=== PATIENT | female | born 1950 | race Caucasian/White ===

== ENCOUNTER 2018-03-11 13:17 | Outpatient (CLI) | payer MEDICARE, BC ==
[~2018-03-11] VITALS: Ht 157.6 cm; Wt 83.3 kg
[~2018-03-11 13:17] MED LIST: OMEPRAZOLE40 MG PO; ZOLOFT 50MG50 MG PO
[2018-03-11] MEDS ORDERED: TOPROL XL 25MG25 MG PO (14:15)
[2018-03-11] MEDS ORDERED: MEVACOR 20M20 MG/TAB PO (14:16)
[2018-03-11] MEDS ORDERED: VITAMIN D31000 I1 PO (14:17)
[2018-03-11 14:36] VITALS: BP 132/71; PULSE 67; TEMP 98.4
[2018-03-11] MEDS ORDERED: CEPHALEXIN500 M1 PO (16:32)
[2018-03-11 17:20] VITALS: BP 138/73; PULSE 62; TEMP 98.4
--- NOTE | 2018-03-11 17:30 | NUR ---
Discharge instructions given. Transferred to private car by bobo
== END 2018-03-11 17:30 | disposition home or self-care (01) ==
LOC: COL.CAR 13:17
DX: I48.0 Paroxysmal atrial fibrillation (principal); E78.5 Hyperlipidemia, unspecified; K21.9 Gastro-esophageal reflux disease without esophagitis; Z87.891 Personal history of nicotine dependence; Z82.5 Family history of asthma and other chronic lower respiratory diseases; Z80.9 Family history of malignant neoplasm, unspecified

== ENCOUNTER → 2019-04-01 | Outpatient (CLI) | payer MEDICARE, BC ==
[~2019-04-01] MED LIST changes: +CEPHALEXIN500 M1 PO; +MEVACOR 20M20 MG/TAB PO; +TOPROL XL 25MG25 MG PO; +VITAMIN D31000 I1 PO
== END ==
LOC: MC.RAD 10:52
DX: Z12.31 Encounter for screening mammogram for malignant neoplasm of breast (principal); Z85.3 Personal history of malignant neoplasm of breast; Z90.12 Acquired absence of left breast and nipple

== ENCOUNTER 2019-10-28 15:17 | Emergency (ER) | payer MEDICARE, BC ==
[~2019-10-28] VITALS: Ht 157.5 cm; Wt 77.3 kg
[2019-10-28 15:33] VITALS: TEMP 97.8
[2019-10-28] MEDS ORDERED: PRILOSEC 20MG20 MG PO (16:21)
[2019-10-28 16:33] LABS: MEAN CELL VOLUME 96 fl (80.0-100.0); MEAN CORPUSCULAR HGB CONC 34 g/dl (33.0-37.0); RED BLOOD COUNT 2.64 M/mm3 (4.10-5.30); REDCELL DISTRIBUTION WIDTH-CV 17.6 % (11.5-14.5)
[2019-10-28 16:40] LABS: INR 1.2 (0.8-3.0); PROTHROMBIN TIME 12.9 SECONDS (9.7-12.8)
[2019-10-28 16:43] LABS: PARTIAL THROMBOPLASTIN TIME 30.3 SECONDS (26.0-37.0)
[2019-10-28 16:44] LABS: HEMATOCRIT 25.2 % (37.0-47.0); HEMOGLOBIN 8.5 g/dl (12.5-16.0); MEAN CORPUSCULAR HEMOGLOBIN 32 pg (27.0-31.0)
[2019-10-28 16:46] LABS: PLATELET COUNT 23 K/mm3 (130-400)
[2019-10-28 16:51] LABS: CALCIUM 8.5 mg/dL (8.4-10.2); CREATININE, serum 0.98 (0.52-1.25); POTASSIUM 3.9 mmol/L (3.4-5.0)
[2019-10-28 17:48] LABS: ANISOCYTOSIS 3+; BAND 2 % (0-10); LYMPHOCYTE 49 % (20.0-51.0); METAMYELOCYTE 4 % (0-0); MYELOCYTE 4 % (0-0); NEUTROPHILS 37 % (42.0-75.2); NUCLEATED RED BLOOD CELL 4 (0-6); POIKILOCYTOSIS 3+
[2019-10-28 17:49] LABS: OVALOCYTES 2+; SCHISTOCYTES 1+
[2019-10-28 18:15] VITALS: BP 130/65; PULSE 98
[2019-10-29 08:34] LABS: PATHOLOGY DIFF REVIEW OK
== END 2019-10-28 18:35 | disposition home or self-care (01) ==
LOC: COL.ER 15:17
PROVIDERS: Emergency Medicine
DX: L76.22 Postprocedural hemorrhage of skin and subcutaneous tissue following other procedure (principal); D61.818 Other pancytopenia

== ENCOUNTER 2019-12-14 11:33 | Inpatient (IN) | payer MEDICARE, BC ==
[~2019-12-14] VITALS: Ht 157.5 cm; Wt 69.0 kg
[~2019-12-14 11:33] MED LIST changes: +PRILOSEC 20MG20 MG PO
[2019-12-14 12:20] LABS: MEAN CELL VOLUME 92 fl (80.0-100.0); MEAN CORPUSCULAR HGB CONC 34 g/dl (33.0-37.0); RED BLOOD COUNT 2.58 M/mm3 (4.10-5.30); REDCELL DISTRIBUTION WIDTH-CV 17.9 % (11.5-14.5)
[2019-12-14 12:27] LABS: ALBUMIN 4.3 gm/dL (3.5-5.0); BILIRUBIN,TOTAL 1.5 mg/dL (0.0-1.0); C-REACTIVE PROTEIN 4.2 mg/dL (0.0-0.9); CREATININE, serum 0.94 (0.52-1.25); POTASSIUM 4.7 mmol/L (3.4-5.0); TOTAL PROTEIN 8.1 gm/dL (6.4-8.2)
[2019-12-14 12:29] LABS: HEMATOCRIT 23.8 % (37.0-47.0); MEAN CORPUSCULAR HEMOGLOBIN 31 pg (27.0-31.0); PLATELET COUNT 31 K/mm3 (130-400)
[2019-12-14 12:41] LABS: BAND 2 % (0-10); LYMPHOCYTE 44 % (20.0-51.0); NEUTROPHILS 53 % (42.0-75.2); NUCLEATED RED BLOOD CELL 6 (0-6); OVALOCYTES 2+; PLATELET ESTIMATE DECREASED (NORMAL); SCHISTOCYTES 1+; TEAR DROP CELLS 2+
[2019-12-14 15:40] VITALS: BP 121/41; PULSE 104; TEMP 99.5
[2019-12-14 17:11] VITALS: BP 114/73; PULSE 109; TEMP 98.4
[2019-12-14 17:14] LABS: COLLECTION METHOD CLEAN CATCH
[2019-12-14 17:25] LABS: PH 5 (5-8); SQUAMOUS EPITHELIAL 0-2 /hpf; URINE APPEARANCE Clear; URINE BACTERIA None Seen /hpf; URINE BILIRUBIN Negative (NEGATIVE); URINE BLOOD 1+ (NEGATIVE); URINE COLOR Yellow; URINE GLUCOSE Negative (NEGATIVE); URINE KETONE 1+ (NEGATIVE); URINE LEUKOCYTE ESTERASE Negative (NEGATIVE); URINE NITRATE Negative (NEGATIVE); URINE PROTEIN(semi-quant) Negative (NEGATIVE); URINE RBC 0-2 /hpf; URINE UROBILINOGEN Negative (NEGATIVE)
--- NOTE | 2019-12-14 18:06 | NUR ---
pt arrived to unit @ 9987 via stretcher. AOX4. Golden arrived shortly after. initially reported pain to lower abd/pelvic region 3/10 after IV pain med and finally 0/10, LCTA. reports last BM yesterday and it was 2 kristina. her and report poor appetite over last month and worst in previous week. states she lost 30 lbs since new Leukemia diagnosis last month. Ensure clear given as per clear liquids order. voided 100mls and UA collected as ordered earlier in day. IV to RTAC started IVF as ordered. denies nausea at this time. will cont to monitor.
--- NOTE | 2019-12-14 19:20 | NUR ---
Received report from QUENTIN Goyal. Pt sitting up in bed with coloring book. Voices no discomfort at this time. Cup ice provided as requested by pt. Call light within reach.
[2019-12-14 20:29] VITALS: BP 122/49; PULSE 103; TEMP 99.2
--- NOTE | 2019-12-14 22:38 | NUR ---
A/Ox4. Denies any pain or discomfort at this time. Meds administered. Voices no needs or concerns. Tele monitor in place. IVF infusing to RAC, intact, dressing CDI. Call light within reach.
[2019-12-15] VITALS (8 sets, daily range): BP systolic 104–143; BP diastolic 35–52; PULSE 93–110; TEMP 98.9–102.5
[2019-12-15 06:55] LABS: MEAN CELL VOLUME 93 fl (80.0-100.0); MEAN CORPUSCULAR HGB CONC 33 g/dl (33.0-37.0); RED BLOOD COUNT 2.13 M/mm3 (4.10-5.30); REDCELL DISTRIBUTION WIDTH-CV 18.2 % (11.5-14.5)
[2019-12-15 07:02] LABS: ALBUMIN 3.4 gm/dL (3.5-5.0); BILIRUBIN UNCONJUGATED 1.4 mg/dL (0.0-1.1); BILIRUBIN,DIRECT 0.3 mg/dL (0.0-0.4); BILIRUBIN,TOTAL 1.7 mg/dL (0.0-1.0); CALCIUM 8.3 mg/dL (8.4-10.2); CREATININE, serum 1.03 (0.52-1.25); HEMATOCRIT 19.8 % (37.0-47.0); HEMOGLOBIN 6.6 g/dl (12.5-16.0); MEAN CORPUSCULAR HEMOGLOBIN 31 pg (27.0-31.0); POTASSIUM 3.5 mmol/L (3.4-5.0); TOTAL PROTEIN 6.7 gm/dL (6.4-8.2)
[2019-12-15 07:03] LABS: PLATELET COUNT 20 K/mm3 (130-400)
--- NOTE | 2019-12-15 07:10 | NUR ---
Pt had temp of 102.5, pt states having a headache without chills. PRN tylenol adminsitered. Temp down to 99.3. Meds administered. Report given to QUENTIN Goyal.
--- NOTE | 2019-12-15 07:26 | NUR ---
BEDSIDE SHIFT REPORT RECEIVED. PT RESTING IN BED WITH EYES CLOSED. NO S/S DISTRESS. LAB CALLED WITH CRITICAL HEMOGLOBIN 6.[address] GUPTA CALLED WITH CRITICAL RESULTS. NO ORDERS AT THIS TIME.
--- NOTE | 2019-12-15 08:18 | NUR ---
PA CALLED IN REGARDS TO LOW BP AND HGB. ORDERS TO GIVE FLUID BOLUS NS 500MMLS AND 1 UNIT IRR RBC. PT AGREES WITH PLAN. PT DENIES ANY HEADACHE, DIZINESS. REPORTS MILD ABD PAIN BUT THINKS IT'S "POOP RELATED". SHE REPORTS SEMI-SOLID BM OVERNIGHT. ON AND CRAMPS OR NAUSEA. TYLENOL GIVEN FOR 99.9 TEMP. NO OTHER COMPLAINTS AT THIS TIME. PT UNSURE IF BM CONTAINED BLOOD OR NOT. SHE DOES REPORT HX OF HEMORROIDS
[2019-12-15 08:31] LABS: BAND 1 % (0-10); LYMPHOCYTE 41 % (20.0-51.0); NEUTROPHILS 57 % (42.0-75.2); NUCLEATED RED BLOOD CELL 2 (0-6); OVALOCYTES 2+; PLATELET ESTIMATE DECREASED (NORMAL); SCHISTOCYTES 1+; TEAR DROP CELLS 2+
--- NOTE | 2019-12-15 09:58 | NUR ---
FLUID BOLUS COMPLETE. RESTARTED ON LR. AWAITING BLOOD TO BE READY/. PT NO NEEDS AT THIS TIME
--- NOTE | 2019-12-15 11:21 | NUR ---
called blood back and they report pt with possibly antibody thus type and cross results pending. pt no needs at this time
--- NOTE | 2019-12-15 11:34 | NUR ---
SW met with the patient to discuss discharge plan. The patient lives in [place] with her , Golden (ph#[phone]). She reports independence with ADLs and does not have any DME. The patient's PCP is Dr. Kyle Fay and she receives her medications at the [facility]. She reports no difficulties obtaining her meds. The patient does not have a DPOA-HC in EMR, but she states that she does have one completed and believes the document is at home. She states that she would have designated her daughter, Kerry (ph#[phone]). The patient plans to return home with her upon discharge. SW contacted the patient's , Golden, to review the above information and d/c plan. Golden confirmed the above information and states that he has no questions or concerns about the patient returning back home with him. No additional needs at this time.
--- NOTE | 2019-12-15 12:09 | NUR ---
First visit from the store consultant. No needs right now.
[2019-12-15 16:35] LABS: HEMATOCRIT 16.8 % (37.0-47.0); HEMOGLOBIN 5.7 g/dl (12.5-16.0)
[2019-12-16] VITALS (13 sets, daily range): BP systolic 115–164; BP diastolic 42–59; PULSE 89–114; TEMP 97.4–102.2
--- NOTE | 2019-12-16 05:24 | NUR ---
pt resting in bed, sleeping most of night. assessment completed and meds given per APR. alert and oriented, gait is steady and independent in room. blood transfusion started at 0250 and continues. pt tolerating transfusion, no signs of reaction. no other needs at this time, will continue to monitor.
[2019-12-16 06:37] LABS: MEAN CELL VOLUME 92 fl (80.0-100.0); MEAN CORPUSCULAR HGB CONC 33 g/dl (33.0-37.0); RED BLOOD COUNT 2.32 M/mm3 (4.10-5.30); REDCELL DISTRIBUTION WIDTH-CV 17.1 % (11.5-14.5)
[2019-12-16 06:40] LABS: HEMATOCRIT 21.4 % (37.0-47.0); HEMOGLOBIN 7.1 g/dl (12.5-16.0); MEAN CORPUSCULAR HEMOGLOBIN 31 pg (27.0-31.0)
[2019-12-16 06:41] LABS: PLATELET COUNT 15 K/mm3 (130-400)
[2019-12-16 06:49] LABS: CALCIUM 7.9 mg/dL (8.4-10.2); CREATININE, serum 0.97 (0.52-1.25); POTASSIUM 3.2 mmol/L (3.4-5.0)
--- NOTE | 2019-12-16 08:30 | NUR ---
Pt awake and alert this morning, has some C/O abdominal pain. Shift assessments complete, left Pt call light in reach, bed in lowest position.
[2019-12-16 18:00] LABS: HEMATOCRIT 20.3 % (37.0-47.0); HEMOGLOBIN 6.9 g/dl (12.5-16.0)
--- NOTE | 2019-12-16 20:14 | NUR ---
pt resting in bed, alert and oreinted. assessment completed and medications given per MAR. lung sounds are clear in all lobes and pt denies shortness of breath or chest pain, heart sounds are regular and normal. pt reporting lower abdominal pain unrelieved by tylenol, gave [place] prn. no other needs at this time, will continue to monitor.
[2019-12-17] VITALS (12 sets, daily range): BP systolic 129–1029; BP diastolic 43–94; PULSE 92–113; TEMP 98.9–100.3
--- NOTE | 2019-12-17 05:40 | NUR ---
pt sleeping in bed most of the night, independent in the room and called for any needs. pt reporting pain the lower abdominal region early in the night, gave [place] prn due to pain unrelieved by tylenol given by dayshift. pt stated that she would rather stick with the tylenol for pain from now on. pt had fever of 100, gave tylenol prn. no other needs at this time, will continue to monitor.
[2019-12-17 06:54] LABS: ALBUMIN 3.1 gm/dL (3.5-5.0); BILIRUBIN,TOTAL 1.5 mg/dL (0.0-1.0); CALCIUM 7.7 mg/dL (8.4-10.2); CREATININE, serum 0.91 (0.52-1.25); MAGNESIUM 1.7 mg/dL (1.6-2.3); POTASSIUM 3.4 mmol/L (3.4-5.0); TOTAL PROTEIN 6.3 gm/dL (6.4-8.2)
[2019-12-17 06:57] LABS: MEAN CELL VOLUME 93 fl (80.0-100.0); MEAN CORPUSCULAR HGB CONC 34 g/dl (33.0-37.0); RED BLOOD COUNT 2.11 M/mm3 (4.10-5.30); REDCELL DISTRIBUTION WIDTH-CV 17.8 % (11.5-14.5)
[2019-12-17 07:09] LABS: HEMATOCRIT 19.7 % (37.0-47.0); HEMOGLOBIN 6.7 g/dl (12.5-16.0); MEAN CORPUSCULAR HEMOGLOBIN 32 pg (27.0-31.0)
[2019-12-17 07:10] LABS: PLATELET COUNT 14 K/mm3 (130-400)
--- NOTE | 2019-12-17 08:49 | NUR ---
Assessment complete. Patient relaxing in bed on entry. States she feels alright. States her pain in there but denies the need for pain medication at this time. PICC site is CD&I, flushed and prashant well. Assessment unremarkable. Medications administered per APR. No other needs expressed at this time. Call light is in reach.
[2019-12-17 09:27] LABS: BAND 5 % (0-10); LYMPHOCYTE 29 % (20.0-51.0); NEUTROPHILS 66 % (42.0-75.2); NUCLEATED RED BLOOD CELL 5 (0-6); OVALOCYTES 2+; PLATELET ESTIMATE DECREASED (NORMAL); SCHISTOCYTES 1+
[2019-12-17 09:29] LABS: TEAR DROP CELLS 1+
--- NOTE | 2019-12-17 11:10 | NUR ---
PICC intact right upper arm with sterile dressing change done with insertion site cleansed with chloraprep x 1, chlorhexidine impregnated disk applied, skin prep, stat lock, and tegaderm applied. large amount of dried reddish drainage noted on disk. no further drainage noted. no signs or symptoms of IV complications noted. no concerns voiced.
[2019-12-17 17:22] LABS: MEAN CELL VOLUME 90 fl (80.0-100.0); MEAN CORPUSCULAR HGB CONC 34 g/dl (33.0-37.0); RED BLOOD COUNT 2.74 M/mm3 (4.10-5.30); REDCELL DISTRIBUTION WIDTH-CV 17.2 % (11.5-14.5)
[2019-12-17 17:24] LABS: HEMATOCRIT 24.7 % (37.0-47.0); HEMOGLOBIN 8.4 g/dl (12.5-16.0); MEAN CORPUSCULAR HEMOGLOBIN 31 pg (27.0-31.0)
[2019-12-17 17:25] LABS: PLATELET COUNT 14 K/mm3 (130-400)
--- NOTE | 2019-12-17 17:28 | NUR ---
Patient had a good day. blood was transfused and patient states that she does feel better than she did before. PRN tylenol given for pain. Tranfusion went well. Welt on inner right thigh is being monitored and physicians are aware, it has been marked since 1529. Will continue to monitor. Call light is in reach.
[2019-12-17 17:58] LABS: BAND 4 % (0-10); BASOPHIL 1 % (0-2); BURR CELLS 1+; LYMPHOCYTE 22 % (20.0-51.0); NEUTROPHILS 71 % (42.0-75.2); NUCLEATED RED BLOOD CELL 2 (0-6); TEAR DROP CELLS 1+
[2019-12-17 17:59] LABS: ANISOCYTOSIS 1+; PLATELET ESTIMATE DECREASED (NORMAL)
--- NOTE | 2019-12-17 21:30 | NUR ---
Pt assessment completed and documented. Pt resting in bed trying to sleep. Pt alert and oriented x4. Complaints of lower abdominal pain. IVF infusing per orders. Pt denies any needs/concerns. Call light within reach. Will continue to monitor
--- NOTE | 2019-12-17 22:05 | NUR ---
Spoke with blood bank on phone regarding platelets. Blood bank stated platelets will not be avaiable until tomorrow because they have to come from [place]. Stated they would call RN responsible for pt when platelets arrive.
[2019-12-18 03:30] VITALS: BP 128/56; PULSE 99; TEMP 99.1
--- NOTE | 2019-12-18 06:06 | NUR ---
Resting in bed at this time. States she got some sleep overnight. PRN norco given per orders for lower abdominal pain. Pt states pain this morning is improved. States most of her pain this morning is located primarily to her right upper thigh where hematoma is located. Will get pt ice pack. IVF infusing per orders. PICC to RUE CDI. Pt denies any needs/concerns. Call light within reach.
[2019-12-18 06:55] LABS: HEMATOCRIT 21.4 % (37.0-47.0); HEMOGLOBIN 7.2 g/dl (12.5-16.0); MEAN CELL VOLUME 91 fl (80.0-100.0); MEAN CORPUSCULAR HEMOGLOBIN 31 pg (27.0-31.0); MEAN CORPUSCULAR HGB CONC 34 g/dl (33.0-37.0); RED BLOOD COUNT 2.35 M/mm3 (4.10-5.30); REDCELL DISTRIBUTION WIDTH-CV 18.5 % (11.5-14.5)
[2019-12-18 06:57] LABS: PLATELET COUNT 11 K/mm3 (130-400)
[2019-12-18 07:01] LABS: CALCIUM 7.4 mg/dL (8.4-10.2); CREATININE, serum 0.84 (0.52-1.25); POTASSIUM 3.7 mmol/L (3.4-5.0)
[2019-12-18 07:20] VITALS: BP 149/59; PULSE 106; TEMP 98.4
[2019-12-18 08:08] LABS: BAND 4 % (0-10); LYMPHOCYTE 35 % (20.0-51.0); NEUTROPHILS 60 % (42.0-75.2); NUCLEATED RED BLOOD CELL 3 (0-6)
[2019-12-18 08:11] LABS: PLATELET ESTIMATE DECREASED (NORMAL)
[2019-12-18 08:13] LABS: OVALOCYTES 2+
[2019-12-18 08:14] LABS: TEAR DROP CELLS 1+
[2019-12-18 08:15] LABS: SCHISTOCYTES 1+
--- NOTE | 2019-12-18 10:25 | NUR ---
JEMIMA attended clinical rounds. The patient is to have a repeat CT today. Her blood count is very low and they are awaiting the platelets. JEMIMA followed up with the patient to review d/c plan. The patient states that she is ready to get home. JEMIMA discussed home health services and their benefits. The patient states that her takes good care of her and is not sure she would need home health. She would like to think about it. JEMIMA provided her with Medicare.gov's list of home health agencies that serve [place].
[2019-12-18 11:34] VITALS: BP 150/74; PULSE 102; TEMP 100.2
[2019-12-18 12:14] LABS: ALBUMIN 2.8 gm/dL (3.5-5.0); BILIRUBIN,TOTAL 1.3 mg/dL (0.0-1.0); MAGNESIUM 1.7 mg/dL (1.6-2.3); PHOSPHOROUS 2.5 mg/dL (2.5-4.5); TOTAL PROTEIN 5.9 gm/dL (6.4-8.2)
[2019-12-18 12:21] LABS: PRE ALBUMIN 5.6 mg/dL (17.6-36.0)
--- NOTE | 2019-12-18 13:00 | NUR ---
Pt assessment completed and charted. Medications administered per apr. Pt had nursing assistants teacher from [facility] helping provide cares. Pt is A&O, independent in room, on room air, breathing is even and unlabored. HRRR, occasionally tachy. LS cta, pulses strong bilaterally, BS active X4. No edema noted. Pt is very pale, received 2 units of blood prior to today during this stay. Pt has DIMITRIS PICC, double lumen, both flush well w/ good blood return. NS @ 50ml/hr running. Pt hs Rt inner thigh hematoma, painful to touch and hard. marked by nurse yesterday, has some redness to it, slightly outgrown edges. Per pt and it also appears to be getting bigger, will continue to monitor. Pt has some diarrhea w/red tinge/streaks/mucous. Pt went down for abd ct this morning. No further needs expressed. Pt denies dizziness, SOB, vomiting, chest pain, or other general pain aside from rt inner thigh and abd.
--- NOTE | 2019-12-18 13:55 | NUR ---
Primary nurse was assisted with [id number] patient care by [employer] student Pat Morgan and [employer] instructor Aida Donahue RN-.
[2019-12-18 14:37] LABS: INR 1.5 (0.8-3.0); PROTHROMBIN TIME 16.9 SECONDS (9.7-12.8)
--- NOTE | 2019-12-18 16:07 | NUR ---
The patient is to transfer to [facility] today, 12/17. No additional needs at this time.
[2019-12-18 16:11] VITALS: BP 157/61; PULSE 95; TEMP 100.1
--- NOTE | 2019-12-18 16:15 | NUR ---
Pt platelet transfusion started to DIMITRIS PICC at 60ml/hr. Initial VS obtained, temp of 100.1. Pt tolerating transfusion well. Verified w/ QUENTIN De La Cruz. this nurse remaining at pt bedside for first 15 min. Clinimix also startd at 42ml hr to other lumen/port of DIMITRIS PICC, purple port. No issues noted.
[2019-12-18 16:27] VITALS: BP 152/56; PULSE 96; TEMP 100.1
--- NOTE | 2019-12-18 16:28 | NUR ---
VS obtained, pt still running temp of 100.1, will give tylenol per orders. No other issues expressed. Rate of transfusion increased to 150ml/hr.
--- NOTE | 2019-12-18 17:13 | NUR ---
1640: THIS NURSE ATTEMPTED TO CALL REPOR TO RECEIVING NURSE AT [facility]. GAVE NUMBER TO CALL BACK. 1700: PT LEFT VIA EMS, W/ PLATELET TRANSFUSION GOING AT 150 ML/HR AND CLINIMIX AT 42 ML/HR. ALL QUESTIONS ANSWERED. [facility] RECEIVING NURSE CALLED FOR REPORT. ALL QUESTIONS ANSWERED. NO FURTHER NEEDS. PT LEFT W/ NO ISSUES.
== END 2019-12-18 17:15 | disposition short-term general hospital (02) | DRG 872 ==
LOC: COL.ER 11:33 → MEDICAL 13:29
PROVIDERS: Family Medicine; Physician Assistant; Student in an Organized Health Care Education/Training Program; ADMIT Hospitalist
PROC: 02HV33Z Insertion of Infusion Device into Superior Vena Cava, Percutaneous Approach (ICD-10-PCS; principal; 2019-12-15)
DX: A41.9 Sepsis, unspecified organism (principal); K57.32 Diverticulitis of large intestine without perforation or abscess without bleeding; D61.818 Other pancytopenia; K92.1 Melena; E44.0 Moderate protein-calorie malnutrition; D46.9 Myelodysplastic syndrome, unspecified; D69.6 Thrombocytopenia, unspecified; E87.6 Hypokalemia; K21.9 Gastro-esophageal reflux disease without esophagitis; F32.9 Major depressive disorder, single episode, unspecified; E80.6 Other disorders of bilirubin metabolism; M79.81 Nontraumatic hematoma of soft tissue; Z87.891 Personal history of nicotine dependence; Z85.3 Personal history of malignant neoplasm of breast
CPT/HCPCS: 99222-AI; 99232-AI; 99233-AI; 99239; C1751; C1892; C9113; J1170; J2405; J2543; J7030; J7040; J7120; P9037; P9040; Q9967

== ENCOUNTER 2020-02-04 10:00 | Outpatient (RCR) | payer MEDICARE, BC ==
[2020-01-22 09:53] VITALS: BP 114/64; PULSE 84; TEMP 98.5
[2020-01-22 11:05] LABS: MEAN CELL VOLUME 86 fl (80.0-100.0); MEAN CORPUSCULAR HGB CONC 34 g/dl (33.0-37.0); RED BLOOD COUNT 2.24 M/mm3 (4.10-5.30); REDCELL DISTRIBUTION WIDTH-CV 16.1 % (11.5-14.5)
[2020-01-22 11:16] LABS: HEMATOCRIT 19.2 % (37.0-47.0); MEAN CORPUSCULAR HEMOGLOBIN 29 pg (27.0-31.0)
[2020-01-22 11:18] LABS: HEMOGLOBIN 6.6 g/dl (12.5-16.0); PLATELET COUNT 44 K/mm3 (130-400)
[2020-01-22 11:53] LABS: LYMPHOCYTE 54 % (20.0-51.0); METAMYELOCYTE 1 % (0-0); NEUTROPHILS 45 % (42.0-75.2); NUCLEATED RED BLOOD CELL 1 (0-6); OVALOCYTES 1+; PLATELET ESTIMATE DECREASED (NORMAL)
[2020-01-22 11:54] LABS: ANISOCYTOSIS 1+
[2020-01-22 11:56] LABS: TEAR DROP CELLS 1+
--- NOTE | 2020-01-28 10:45 | NUR ---
Here for cares. PICC intact right upper arm with sterile dressing change done with insertion site cleansed with chloraprep x 1, chlorhexidine impegated disk applied, skin prep, stat lock, and tegaderm applied. no signs or symptoms of IV complications noted. no concerns voiced. re-wrapped with an leia to protect catheter. to return next week for cares. voiced understanding of instructions.
[2020-01-28 10:59] LABS: MEAN CELL VOLUME 87 fl (80.0-100.0); MEAN CORPUSCULAR HGB CONC 35 g/dl (33.0-37.0); REDCELL DISTRIBUTION WIDTH-CV 16.5 % (11.5-14.5)
[2020-01-28 11:04] LABS: HEMOGLOBIN 9.6 g/dl (12.5-16.0); MEAN CORPUSCULAR HEMOGLOBIN 30 pg (27.0-31.0)
[2020-01-28 11:05] LABS: HEMATOCRIT 27.7 % (37.0-47.0)
[2020-01-28 11:07] LABS: PLATELET COUNT 36 K/mm3 (130-400)
[2020-01-28 11:15] VITALS: BP 125/57; PULSE 91; TEMP 99
[2020-01-28 12:23] LABS: BAND 3 % (0-10); BASOPHIL 1 % (0-2); EOSINOPHIL 2 % (0-4); LYMPHOCYTE 34 % (20.0-51.0); NEUTROPHILS 58 % (42.0-75.2); NUCLEATED RED BLOOD CELL 6 (0-6)
[2020-01-28 12:24] LABS: ANISOCYTOSIS 1+
[2020-01-28 12:25] LABS: PLATELET ESTIMATE DECREASED (NORMAL)
[2020-01-28 12:26] LABS: MICROCYTOSIS 1+; OVALOCYTES 1+
[~2020-02-04] VITALS: Ht 157.5 cm; Wt 62.3 kg
--- NOTE | 2020-02-04 09:00 | NUR ---
Here for cares. PICC intact right upper arm with sterile dressing change done with insertion site cleansed with chloraprep x 1, chlorhexidine impregnated disk applied, skin prep, stat lock, and tegaderm applied. no signs or symptoms of IV complications noted. no concerns voiced. to return next week for cares. voiced understanding of instructions.
[2020-02-04 09:07] VITALS: BP 158/88; PULSE 77; TEMP 98.6
[2020-02-04 09:12] LABS: MEAN CELL VOLUME 90 fl (80.0-100.0); MEAN CORPUSCULAR HGB CONC 34 g/dl (33.0-37.0); RED BLOOD COUNT 3.06 M/mm3 (4.10-5.30); REDCELL DISTRIBUTION WIDTH-CV 17.1 % (11.5-14.5); RETIC # 0.13 M/mm3 (0.02-0.16); RETIC % 4.3 % (0.5-3.52)
[2020-02-04 09:13] LABS: HEMOGLOBIN 9.2 g/dl (12.5-16.0); MEAN CORPUSCULAR HEMOGLOBIN 30 pg (27.0-31.0)
[2020-02-04 09:14] LABS: HEMATOCRIT 27.4 % (37.0-47.0)
[2020-02-04 09:15] LABS: PLATELET COUNT 24 K/mm3 (130-400)
[2020-02-04 09:20] LABS: ALBUMIN 3.7 gm/dL (3.5-5.0); BILIRUBIN,TOTAL 1.1 mg/dL (0.0-1.0); CALCIUM 8.8 mg/dL (8.4-10.2); CREATININE, serum 0.81 (0.52-1.25); POTASSIUM 3.6 mmol/L (3.4-5.0); TOTAL PROTEIN 6.9 gm/dL (6.4-8.2)
[2020-02-04 10:16] LABS: BASOPHIL 2 % (0-2); LYMPHOCYTE 50 % (20.0-51.0); NEUTROPHILS 48 % (42.0-75.2); NUCLEATED RED BLOOD CELL 2 (0-6); PLATELET ESTIMATE DECREASED (NORMAL)
[2020-02-04 10:17] LABS: ANISOCYTOSIS 2+; MICROCYTOSIS 1+; SCHISTOCYTES 1+
[2020-02-04 10:18] LABS: OVALOCYTES 1+; POIKILOCYTOSIS 2+
[2020-02-05 08:28] LABS: PATHOLOGY DIFF REVIEW OK
[2020-02-09] MEDS ORDERED: FLAGYL 250250 MG/TAB PO (10:55)
[2020-02-09] MEDS ORDERED: LEVAQUIN 5500 MG/TA1 PO (10:56)
--- NOTE | 2020-02-10 10:22 | NUR ---
Report received fromJak Jaquez pt is inpatient and will not be at apt scheduled tomorrow.
== END 2020-02-10 10:22 | disposition home or self-care (01) ==
LOC: EUO 10:00
PROVIDERS: Internal Medicine Medical Oncology
DX: Z45.2 Encounter for adjustment and management of vascular access device (principal); D46.21 Refractory anemia with excess of blasts 1
CPT/HCPCS: C1751

== ENCOUNTER 2020-02-09 09:40 | Inpatient (IN) | payer MEDICARE, BC ==
[~2020-02-09] VITALS: Ht 157.5 cm; Wt 62.0 kg
--- NOTE | 2020-02-09 09:58 | NUR ---
DOUG EVANGELISTA CALLED AND NOTIFIED OF PATIENT ARRIVAL TO ROOM 343.
[2020-02-09 10:23] VITALS: BP 134/46; PULSE 87; TEMP 97.9
[2020-02-09] MEDS ORDERED: FLAGYL 250250 MG/TAB PO (10:55)
[2020-02-09] MEDS ORDERED: LEVAQUIN 5500 MG/TA1 PO (10:56)
--- NOTE | 2020-02-09 11:20 | NUR ---
PATIENT ADMISSION ASSESSMENTS COMPLETE.
[2020-02-09 12:12] LABS: ALBUMIN 3.1 gm/dL (3.5-5.0); CALCIUM 8.6 mg/dL (8.4-10.2); CREATININE, serum 0.86 (0.52-1.25); POTASSIUM 3.3 mmol/L (3.4-5.0); TOTAL PROTEIN 6.3 gm/dL (6.4-8.2)
[2020-02-09 12:15] LABS: MEAN CELL VOLUME 91 fl (80.0-100.0); MEAN CORPUSCULAR HGB CONC 33 g/dl (33.0-37.0); RED BLOOD COUNT 2.33 M/mm3 (4.10-5.30); REDCELL DISTRIBUTION WIDTH-CV 17.6 % (11.5-14.5)
[2020-02-09 12:17] LABS: HEMATOCRIT 21.3 % (37.0-47.0); HEMOGLOBIN 7.1 g/dl (12.5-16.0); MEAN CORPUSCULAR HEMOGLOBIN 30 pg (27.0-31.0)
[2020-02-09 12:21] LABS: PLATELET COUNT 20 K/mm3 (130-400)
[2020-02-09 12:30] VITALS: BP 130/48; PULSE 95; TEMP 98.1
[2020-02-09 12:51] LABS: BAND 12 % (0-10); LYMPHOCYTE 27 % (20.0-51.0); NEUTROPHILS 58 % (42.0-75.2)
[2020-02-09 12:52] LABS: OVALOCYTES 1+; PLATELET ESTIMATE DECREASED (NORMAL); TEAR DROP CELLS 2+
[2020-02-09 13:40] LABS: COLLECTION METHOD CLEAN CATCH
[2020-02-09 13:49] LABS: MUCOUS Present /lpf; PH 5 (5-8); URINE APPEARANCE Hazy; URINE BACTERIA Rare /hpf; URINE BILIRUBIN Negative (NEGATIVE); URINE BLOOD Negative (NEGATIVE); URINE COLOR Amber; URINE GLUCOSE Negative (NEGATIVE); URINE KETONE 1+ (NEGATIVE); URINE LEUKOCYTE ESTERASE Trace (NEGATIVE); URINE NITRATE Negative (NEGATIVE); URINE PROTEIN(semi-quant) 1+ (NEGATIVE); URINE UROBILINOGEN Negative (NEGATIVE)
--- NOTE | 2020-02-09 14:05 | NUR ---
PATIENT TAKEN DOWN FOR CT SCAN VIA WHEELCHAIR. WILL WAIT FOR PATIENT ARRIVAL BACK TO ROOM 343.
--- NOTE | 2020-02-09 14:35 | NUR ---
PATIENT ARRIVED BACK TO ROOM [address] SCAN. PATIENT SETTELED BACK INTO ROOM AND RECONNECTED TO IV. CALL LIGHT IN REACH. PATIENT DENIES ANY NEEDS AT THIS TIME.
--- NOTE | 2020-02-09 14:41 | NUR ---
RADIOLOGY NOTIFIED THIS NURSE THAT THERE IS FLUID PRESENT IN THE VAGINAL CANAL THAT WAS NOT ON A PREVIOUS SCAN FROM 7 WEEKS AGO, AND NEEDS TO BE FURTHER INVESTIGATED. PATIENT REPORTING INTERMITTENT BURNING WITH URINATION, DARK YELLOW VAGINAL DISCHARGE THAT DOESNT QUITE LOOK NORMAL. DOUG BAUGH CALLED AND NOTIFIED.
--- NOTE | 2020-02-09 16:00 | NUR ---
NOTIFIED OF DAMPER FITTER CONSULT FOR FLUID ACCUMULATION IN THE ENDOMETRIAL CANAL.
[2020-02-09 16:55] VITALS: BP 139/59; PULSE 98; TEMP 98.2
[2020-02-09 19:06] VITALS: BP 134/48; PULSE 99; TEMP 98.2
--- NOTE | 2020-02-09 20:34 | NUR ---
PT IN BED. IS ALERT AND ORIENTED X4. HAS IVF INFUSING TO RIGHT UPPER ARM PICC, SINGLE LUMEN, WITHOUT PROBLEM. TAKES MELATONIN AT THIS TIME FOR SLEEP. DENIES PAIN IN ABDOMEN AT THIS TIME. HAS BEEN INDEPENDENT IN ROOM.
[2020-02-09 23:31] VITALS: BP 137/48; PULSE 92; TEMP 98.7
[2020-02-10] VITALS (11 sets, daily range): BP systolic 135–153; BP diastolic 38–54; PULSE 93–107; TEMP 98.3–99.2
--- NOTE | 2020-02-10 05:00 | NUR ---
Pt denies pain at this time. Has been up on own to bathroom.
[2020-02-10 08:14] LABS: MEAN CELL VOLUME 92 fl (80.0-100.0); MEAN CORPUSCULAR HGB CONC 33 g/dl (33.0-37.0); RED BLOOD COUNT 2.04 M/mm3 (4.10-5.30)
[2020-02-10 08:16] LABS: HEMATOCRIT 18.7 % (37.0-47.0); HEMOGLOBIN 6.2 g/dl (12.5-16.0); MEAN CORPUSCULAR HEMOGLOBIN 30 pg (27.0-31.0); PLATELET COUNT 21 K/mm3 (130-400)
[2020-02-10 08:28] LABS: ALBUMIN 2.6 gm/dL (3.5-5.0); BILIRUBIN,TOTAL 0.6 mg/dL (0.0-1.0); CALCIUM 8.1 mg/dL (8.4-10.2); CREATININE, serum 0.73 (0.52-1.25); MAGNESIUM 1.9 mg/dL (1.6-2.3); POTASSIUM 3.7 mmol/L (3.4-5.0); TOTAL PROTEIN 5.5 gm/dL (6.4-8.2)
--- NOTE | 2020-02-10 09:44 | NUR ---
Back Feeder Plywood Layup Line attended clinical rounds with the team. OBGYN was consulted. PT/OT ordered.
--- NOTE | 2020-02-10 09:46 | NUR ---
Initial visit; Patient thanked Reliability Technician for looking in on her and offering god's blessings. Patient was receptive to Reliability Technician keeping her in Reliability Technician's prayers.
--- NOTE | 2020-02-10 15:00 | NUR ---
Stunner Animal met with the patient to complete intake. The patient lives in [place] with her . The patient has a walker she uses occassionally and a shower chair. She is independent. The patient's PCP is Dr. Kyle Fay and patient receives medications from [facility] in with no difficulties. The patient does not have advanced directives in the EMR but states they are complete and designate her lancebernard Kerry #[phone]. The patient plans to return home at discharge and her will provide transportation. There are no additional needs at this time.
--- NOTE | 2020-02-10 16:07 | NUR ---
Blood transfusion started. Discussed possible reactions and signs of reactions. Explained the process. Blood checked following protocol. Blood checked with Kathryn Turner RN. This nurse will stay with patient for initial 15mins of transfusion. No other changes at this time. Call light within reach.
--- NOTE | 2020-02-10 16:25 | NUR ---
Patient is tolerating transfusion well. Increased rate to 125ml/hr. Discussed again with patient the signs and symptoms of transfusion reactions. This nurse stayed with patient for the first 15mins. No other changes at this time. Call light within reach.
--- NOTE | 2020-02-10 18:00 | NUR ---
Blood is still transfusing at 125ml/hr. Patient is tolerating transfusion well. No adverse affects noted. Denies nausea and pain. She ordered dinner but did not eat much. She stated she has no appetite. Patient has been doing well today. She has been independent in the room. Needs reminders to cough and deep breath. No other changes at this time. Call light within reach.
--- NOTE | 2020-02-10 19:30 | NUR ---
ENDED BLOOD TRANSFUSION. PATIENT TOLERATED WELL. VSS AND NO ADVERSE REACTIONS. WILL FINISH POTASSIUM REPLACEMENTS NOW. PATIENT'S CALL LIGHT IS WITHIN REACH AND SHE DENIES ANY FURTHER NEEDS AT THIS TIME.
[2020-02-10 21:51] LABS: HEMATOCRIT 23.1 % (37.0-47.0); HEMOGLOBIN 7.7 g/dl (12.5-16.0)
[2020-02-11] VITALS (7 sets, daily range): BP systolic 105–156; BP diastolic 52–66; PULSE 78–95; TEMP 97.8–98.7
--- NOTE | 2020-02-11 06:26 | NUR ---
PATIENT HAS SOME COMPLAINTS OF A STOMACH ACHE BUT SAYS IT IS TOLERABLE. DENIES ANY OTHER NEEDS AT THIS TIME.
[2020-02-11 06:42] LABS: MEAN CELL VOLUME 92 fl (80.0-100.0); MEAN CORPUSCULAR HGB CONC 33 g/dl (33.0-37.0); RED BLOOD COUNT 2.52 M/mm3 (4.10-5.30)
[2020-02-11 06:54] LABS: CALCIUM 8.1 mg/dL (8.4-10.2); CREATININE, serum 0.74 (0.52-1.25); POTASSIUM 3.9 mmol/L (3.4-5.0)
[2020-02-11 06:58] LABS: HEMATOCRIT 23.2 % (37.0-47.0); HEMOGLOBIN 7.7 g/dl (12.5-16.0); MEAN CORPUSCULAR HEMOGLOBIN 31 pg (27.0-31.0)
[2020-02-11 06:59] LABS: PLATELET COUNT 27 K/mm3 (130-400)
--- NOTE | 2020-02-11 18:30 | NUR ---
Patient did well today. Minimal complaints of pain. No complaints of nausea. She has been eating a little better today. Planning for discharge tomorrow after morning antibiotics, will go home on PO antibiotics. She worked with PT/OT and did well. No other changes at this time. Call light within reach.
--- NOTE | 2020-02-11 21:30 | NUR ---
PT INDEPENDENT IN ROOM. IV FLAGYL INFUSING TO RIGHT PICC WITHOUT PROBLEM. VOIDING MEGAN URINE. IS ALERT AND ORIENTED, PALE. DENIES PAIN OR N/V AT THIS TIME.
[2020-02-12 03:03] VITALS: BP 156/58; PULSE 87; TEMP 98.6
--- NOTE | 2020-02-12 06:10 | NUR ---
Takes AM med without problem. Denies needs at this time.
--- NOTE | 2020-02-12 07:59 | NUR ---
Lying in bed with eyes open. Denies pain at this time. Patient says that she hopes she will be able to go home today. Denies additional needs at this time. Patient says that she normally does not eat breakfast so does not want to eat breakfast.
[2020-02-12 08:15] VITALS: BP 153/54; PULSE 80; TEMP 98.2
[2020-02-12 12:46] VITALS: BP 148/64; PULSE 87; TEMP 98.5
--- NOTE | 2020-02-12 12:53 | NUR ---
Sitting up in bed watching TV. Denies pain. Says that she hopes to see the provider soon so that she can go home. Denies needs at this time.
[2020-02-12] MEDS ORDERED: FLAGYL500 MG PO (14:56)
[2020-02-12] MEDS ORDERED: OMNICEF 300MG300 MG PO (14:57)
[2020-02-12] MEDS ORDERED: FLORASTOR250 MG PO (14:57)
--- NOTE | 2020-02-12 15:10 | NUR ---
Spoke with the patient and she keeps PICC line in as it is used for her chemo. Patient says that she spoke with SUNITHA Taylor, this morning and told her that she was going to be discharged today. Patient says that she comes every Sunday to get the PICC dressing and caps changed. Explain that we will get her discharge paperwork together at this time. Patient will let spouse know he can head this direction to pick her up and patient says that she will get dressed at this time.
--- NOTE | 2020-02-12 15:22 | NUR ---
Review all discharge instructions with the patient. Questions answered. Patient verbalizes understanding and signs all discharge paperwork. Discharge packet provided to patient. Patient will let staff know when her spouse is here to pick her up.
--- NOTE | 2020-02-12 15:41 | NUR ---
Patient calls and says that her spouse is here to pick her up. Patient assisted out to POV with all personal belongings by VALENTÍN Ansari, by wheel chair.
== END 2020-02-12 15:43 | disposition home or self-care (01) | DRG 392 ==
LOC: SURG 09:40
PROVIDERS: Physician Assistant; Student in an Organized Health Care Education/Training Program; ADMIT Hospitalist
DX: K57.32 Diverticulitis of large intestine without perforation or abscess without bleeding (principal); D61.818 Other pancytopenia; E87.1 Hypo-osmolality and hyponatremia; E44.0 Moderate protein-calorie malnutrition; D46.9 Myelodysplastic syndrome, unspecified; Z66 Do not resuscitate; E87.6 Hypokalemia; S30.92XA Unspecified superficial injury of abdominal wall, initial encounter; M79.81 Nontraumatic hematoma of soft tissue; K21.9 Gastro-esophageal reflux disease without esophagitis; F32.9 Major depressive disorder, single episode, unspecified; G47.00 Insomnia, unspecified; Z87.891 Personal history of nicotine dependence; Z85.3 Personal history of malignant neoplasm of breast; Z68.24 Body mass index [BMI] 24.0-24.9, adult
CPT/HCPCS: OP; 99222-AI; 99232-AI; 99239; J0696; J3480; J7030; P9040; Q9967

== ENCOUNTER 2020-02-18 08:49 | Outpatient (RCR) | payer MEDICARE, BC ==
[~2020-02-18] VITALS: Ht 157.5 cm; Wt 60.6 kg
[~2020-02-18 08:49] MED LIST changes: +FLAGYL 250250 MG/TAB PO; +FLAGYL500 MG PO; +FLORASTOR250 MG PO; +LEVAQUIN 5500 MG/TA1 PO; +OMNICEF 300MG300 MG PO
[2020-02-18 09:02] LABS: MEAN CELL VOLUME 90 fl (80.0-100.0); MEAN CORPUSCULAR HGB CONC 33 g/dl (33.0-37.0); MEAN PLATELET VOLUME 12.5 fl (7.4-10.4); PLATELET COUNT 75 K/mm3 (130-400); RED BLOOD COUNT 3.28 M/mm3 (4.10-5.30); REDCELL DISTRIBUTION WIDTH-CV 16.6 % (11.5-14.5)
[2020-02-18 09:05] LABS: HEMATOCRIT 29.6 % (37.0-47.0); HEMOGLOBIN 9.9 g/dl (12.5-16.0); MEAN CORPUSCULAR HEMOGLOBIN 30 pg (27.0-31.0)
[2020-02-18 09:12] VITALS: BP 172/103; PULSE 83; TEMP 98
[2020-02-18 09:58] LABS: NEUTROPHILS 54 % (42.0-75.2)
[2020-02-18 09:59] LABS: BAND 4 % (0-10); LYMPHOCYTE 37 % (20.0-51.0)
[2020-02-18 10:00] LABS: OVALOCYTES 1+; SCHISTOCYTES 1+; TEAR DROP CELLS 1+
[2020-02-18 10:17] LABS: PLATELET ESTIMATE DECREASED (NORMAL)
[2020-02-18 10:18] LABS: ANISOCYTOSIS 1+
== END 2020-02-23 | disposition home or self-care (01) ==
LOC: EUO
PROVIDERS: Internal Medicine Medical Oncology
DX: D46.21 Refractory anemia with excess of blasts 1 (principal)

== ENCOUNTER 2020-05-19 09:00 | Outpatient (RCR) | payer MEDICARE ==
[2020-02-25 09:30] VITALS: BP 163/110; PULSE 86; TEMP 97.9
[2020-02-25 10:03] LABS: MEAN CELL VOLUME 90 fl (80.0-100.0); MEAN CORPUSCULAR HGB CONC 34 g/dl (33.0-37.0); PLATELET COUNT 67 K/mm3 (130-400); RED BLOOD COUNT 3.05 M/mm3 (4.10-5.30); REDCELL DISTRIBUTION WIDTH-CV 16.4 % (11.5-14.5)
[2020-02-25 10:09] LABS: HEMOGLOBIN 9.2 g/dl (12.5-16.0); MEAN CORPUSCULAR HEMOGLOBIN 30 pg (27.0-31.0)
[2020-02-25 10:10] LABS: HEMATOCRIT 27.4 % (37.0-47.0)
[2020-02-25 10:48] LABS: ANISOCYTOSIS 1+; BAND 1 % (0-10); NEUTROPHILS 62 % (42.0-75.2); PLATELET ESTIMATE DECREASED (NORMAL)
[2020-02-25 10:49] LABS: OVALOCYTES 1+; TEAR DROP CELLS 1+
[2020-02-25 10:54] LABS: LYMPHOCYTE 30 % (20.0-51.0)
[2020-03-03 09:30] VITALS: BP 170/87; PULSE 83; TEMP 98.8
[2020-03-03 13:37] LABS: MEAN CELL VOLUME 90 fl (80.0-100.0); MEAN CORPUSCULAR HGB CONC 34 g/dl (33.0-37.0); PLATELET COUNT 52 K/mm3 (130-400); RED BLOOD COUNT 2.85 M/mm3 (4.10-5.30); REDCELL DISTRIBUTION WIDTH-CV 17.5 % (11.5-14.5)
[2020-03-03 13:39] LABS: HEMATOCRIT 25.6 % (37.0-47.0); HEMOGLOBIN 8.7 g/dl (12.5-16.0); MEAN CORPUSCULAR HEMOGLOBIN 31 pg (27.0-31.0)
[2020-03-03 14:26] LABS: BAND 3 % (0-10); LYMPHOCYTE 36 % (20.0-51.0); NEUTROPHILS 56 % (42.0-75.2)
[2020-03-03 14:27] LABS: PLATELET ESTIMATE DECREASED (NORMAL); SCHISTOCYTES 1+
[2020-03-10 08:54] VITALS: BP 161/101; PULSE 80; TEMP 98.1
[2020-03-10 08:59] LABS: ALBUMIN 3.8 gm/dL (3.5-5.0); BILIRUBIN,TOTAL 1.1 mg/dL (0.0-1.0); CALCIUM 9.1 mg/dL (8.4-10.2); CREATININE, serum 0.87 (0.52-1.25); POTASSIUM 3.8 mmol/L (3.4-5.0); TOTAL PROTEIN 6.9 gm/dL (6.4-8.2)
[2020-03-10 09:15] LABS: MEAN CELL VOLUME 91 fl (80.0-100.0); MEAN CORPUSCULAR HGB CONC 34 g/dl (33.0-37.0); RED BLOOD COUNT 2.79 M/mm3 (4.10-5.30); REDCELL DISTRIBUTION WIDTH-CV 18.8 % (11.5-14.5); RETIC # 0.13 M/mm3 (0.02-0.16); RETIC % 4.7 % (0.5-3.52)
[2020-03-10 09:17] LABS: HEMATOCRIT 25.4 % (37.0-47.0); HEMOGLOBIN 8.6 g/dl (12.5-16.0); MEAN CORPUSCULAR HEMOGLOBIN 31 pg (27.0-31.0)
[2020-03-10 09:23] LABS: PLATELET COUNT 41 K/mm3 (130-400)
[2020-03-10 10:08] LABS: BASOPHIL 1 % (0-2); EOSINOPHIL 1 % (0-4); NEUTROPHILS 43 % (42.0-75.2)
[2020-03-10 10:09] LABS: PLATELET ESTIMATE DECREASED (NORMAL)
[2020-03-10 10:10] LABS: SCHISTOCYTES 1+
[2020-03-10 10:11] LABS: OVALOCYTES 1+; TEAR DROP CELLS 1+
[2020-03-10 10:12] LABS: ANISOCYTOSIS 1+; POIKILOCYTOSIS 1+
[2020-03-10 10:14] LABS: MICROCYTOSIS 1+
[2020-03-10 10:18] LABS: LYMPHOCYTE 54 % (20.0-51.0)
[2020-03-11 08:19] LABS: PATHOLOGY DIFF REVIEW OK
[2020-03-17 09:10] LABS: MEAN CELL VOLUME 93 fl (80.0-100.0); MEAN CORPUSCULAR HGB CONC 34 g/dl (33.0-37.0); RED BLOOD COUNT 2.85 M/mm3 (4.10-5.30)
[2020-03-17 09:14] LABS: HEMATOCRIT 26.5 % (37.0-47.0); HEMOGLOBIN 8.9 g/dl (12.5-16.0); MEAN CORPUSCULAR HEMOGLOBIN 31 pg (27.0-31.0)
[2020-03-17 09:15] LABS: PLATELET COUNT 37 K/mm3 (130-400)
[2020-03-17 10:01] VITALS: BP 148/88; PULSE 84; TEMP 98
[2020-03-17 10:33] LABS: BAND 2 % (0-10); NEUTROPHILS 66 % (42.0-75.2)
[2020-03-17 10:34] LABS: LYMPHOCYTE 29 % (20.0-51.0)
[2020-03-17 10:38] LABS: ANISOCYTOSIS 2+
[2020-03-17 10:40] LABS: MICROCYTOSIS 1+; OVALOCYTES 1+
[2020-03-17 10:41] LABS: PLATELET ESTIMATE DECREASED (NORMAL); TEAR DROP CELLS 1+
[2020-03-17 10:43] LABS: SCHISTOCYTES 1+
[2020-03-18 08:00] LABS: PATHOLOGY DIFF REVIEW OK
[2020-03-24 09:11] LABS: HEMATOCRIT 25.3 % (37.0-47.0); HEMOGLOBIN 8.7 g/dl (12.5-16.0); MEAN CELL VOLUME 92 fl (80.0-100.0); MEAN CORPUSCULAR HEMOGLOBIN 32 pg (27.0-31.0); MEAN CORPUSCULAR HGB CONC 34 g/dl (33.0-37.0); PLATELET COUNT 67 K/mm3 (130-400); RED BLOOD COUNT 2.76 M/mm3 (4.10-5.30); REDCELL DISTRIBUTION WIDTH-CV 18.8 % (11.5-14.5)
[2020-03-24 09:23] VITALS: BP 147/90; PULSE 96; TEMP 99.2
[2020-03-24 09:54] LABS: EOSINOPHIL 1 % (0-4); LYMPHOCYTE 29 % (20.0-51.0); NEUTROPHILS 67 % (42.0-75.2)
[2020-03-24 09:56] LABS: PLATELET ESTIMATE NORMAL (NORMAL)
[2020-03-24 09:57] LABS: ANISOCYTOSIS 2+; SCHISTOCYTES 1+
[2020-03-24 09:58] LABS: MICROCYTOSIS 2+; OVALOCYTES 1+; POIKILOCYTOSIS 1+
[2020-03-24 09:59] LABS: TEAR DROP CELLS 1+
[2020-03-31 09:18] LABS: MEAN CELL VOLUME 93 fl (80.0-100.0); MEAN CORPUSCULAR HGB CONC 34 g/dl (33.0-37.0); MEAN PLATELET VOLUME 11.6 fl (7.4-10.4); PLATELET COUNT 83 K/mm3 (130-400); RED BLOOD COUNT 2.45 M/mm3 (4.10-5.30); REDCELL DISTRIBUTION WIDTH-CV 18.9 % (11.5-14.5)
[2020-03-31 09:19] LABS: HEMATOCRIT 22.7 % (37.0-47.0); HEMOGLOBIN 7.8 g/dl (12.5-16.0); MEAN CORPUSCULAR HEMOGLOBIN 32 pg (27.0-31.0)
[2020-03-31 09:31] VITALS: BP 168/103; PULSE 88; TEMP 98.4
[2020-03-31 09:45] LABS: BAND 1 % (0-10); BASOPHIL 2 % (0-2); EOSINOPHIL 2 % (0-4); LYMPHOCYTE 47 % (20.0-51.0); NEUTROPHILS 46 % (42.0-75.2); NUCLEATED RED BLOOD CELL 1 (0-6)
[2020-03-31 09:46] LABS: PLATELET ESTIMATE DECREASED (NORMAL)
[2020-03-31 09:47] LABS: ANISOCYTOSIS 1+; MICROCYTOSIS 1+
[2020-03-31 09:48] LABS: OVALOCYTES 1+; POIKILOCYTOSIS 2+; SCHISTOCYTES 1+; TEAR DROP CELLS 1+
[2020-04-07 08:53] VITALS: BP 155/90; PULSE 77; TEMP 98
[2020-04-07 08:57] LABS: MEAN CELL VOLUME 96 fl (80.0-100.0); MEAN CORPUSCULAR HGB CONC 34 g/dl (33.0-37.0); PLATELET COUNT 54 K/mm3 (130-400); REDCELL DISTRIBUTION WIDTH-CV 20.3 % (11.5-14.5); RETIC # 0.14 M/mm3 (0.02-0.16); RETIC % 5.1 % (0.5-3.52)
[2020-04-07 08:58] LABS: HEMATOCRIT 25.9 % (37.0-47.0); HEMOGLOBIN 8.7 g/dl (12.5-16.0); MEAN CORPUSCULAR HEMOGLOBIN 32 pg (27.0-31.0)
[2020-04-07 09:09] LABS: BILIRUBIN,TOTAL 0.8 mg/dL (0.0-1.0); CALCIUM 9.3 mg/dL (8.4-10.2); CREATININE, serum 0.86 (0.52-1.25); POTASSIUM 3.7 mmol/L (3.4-5.0)
[2020-04-07 09:34] LABS: BASOPHIL 1 % (0-2); EOSINOPHIL 3 % (0-4); LYMPHOCYTE 42 % (20.0-51.0); NEUTROPHILS 45 % (42.0-75.2)
[2020-04-07 09:35] LABS: ANISOCYTOSIS 3+; OVALOCYTES 1+; PLATELET ESTIMATE DECREASED (NORMAL); POIKILOCYTOSIS 1+; TEAR DROP CELLS 1+
[2020-04-07 09:36] LABS: SCHISTOCYTES 1+
[2020-04-14 09:00] VITALS: BP 156/98; PULSE 72; TEMP 98.2
[2020-04-15 08:49] LABS: MEAN CELL VOLUME 97 fl (80.0-100.0); MEAN CORPUSCULAR HGB CONC 34 g/dl (33.0-37.0); MEAN PLATELET VOLUME 11.9 fl (7.4-10.4); PLATELET COUNT 112 K/mm3 (130-400); RED BLOOD COUNT 2.71 M/mm3 (4.10-5.30); REDCELL DISTRIBUTION WIDTH-CV 19.6 % (11.5-14.5)
[2020-04-15 08:50] LABS: HEMATOCRIT 26.3 % (37.0-47.0); HEMOGLOBIN 8.8 g/dl (12.5-16.0); MEAN CORPUSCULAR HEMOGLOBIN 32 pg (27.0-31.0)
[2020-04-15 08:51] LABS: BASOPHIL 7 % (0-2); LYMPHOCYTE 45 % (20.0-51.0); NEUTROPHILS 42 % (42.0-75.2)
[2020-04-15 08:52] LABS: ANISOCYTOSIS 2+; OVALOCYTES 1+; PLATELET ESTIMATE DECREASED (NORMAL); SCHISTOCYTES 1+; TEAR DROP CELLS 1+
[2020-04-15 09:23] LABS: ALBUMIN 3.8 gm/dL (3.5-5.0); BILIRUBIN,TOTAL 0.6 mg/dL (0.0-1.0); CALCIUM 9.3 mg/dL (8.4-10.2); CREATININE, serum 0.96 (0.52-1.25); POTASSIUM 3.8 mmol/L (3.4-5.0); TOTAL PROTEIN 6.9 gm/dL (6.4-8.2)
[2020-04-16 07:55] LABS: PATHOLOGY DIFF REVIEW OK
[2020-04-21 09:03] LABS: MEAN CELL VOLUME 97 fl (80.0-100.0); MEAN CORPUSCULAR HGB CONC 34 g/dl (33.0-37.0); MEAN PLATELET VOLUME 9.5 fl (7.4-10.4); PLATELET COUNT 176 K/mm3 (130-400); REDCELL DISTRIBUTION WIDTH-CV 19.3 % (11.5-14.5)
[2020-04-21 09:06] LABS: HEMATOCRIT 26.3 % (37.0-47.0); HEMOGLOBIN 8.8 g/dl (12.5-16.0); MEAN CORPUSCULAR HEMOGLOBIN 33 pg (27.0-31.0)
[2020-04-21 09:21] VITALS: BP 165/98; PULSE 82; TEMP 98.6
[2020-04-21 09:47] LABS: ANISOCYTOSIS 2+; BASOPHIL 1 % (0-2); EOSINOPHIL 2 % (0-4); LYMPHOCYTE 24 % (20.0-51.0); NEUTROPHILS 70 % (42.0-75.2); PLATELET ESTIMATE NORMAL (NORMAL)
[2020-04-21 09:48] LABS: OVALOCYTES 1+; SCHISTOCYTES 1+; TEAR DROP CELLS 1+
[2020-04-28 08:56] VITALS: BP 164/90; PULSE 83; TEMP 98
[2020-04-28 09:27] LABS: MEAN CELL VOLUME 99 fl (80.0-100.0); MEAN CORPUSCULAR HGB CONC 33 g/dl (33.0-37.0); MEAN PLATELET VOLUME 11.6 fl (7.4-10.4); PLATELET COUNT 129 K/mm3 (130-400); RED BLOOD COUNT 2.73 M/mm3 (4.10-5.30); REDCELL DISTRIBUTION WIDTH-CV 18.9 % (11.5-14.5)
[2020-04-28 09:34] LABS: HEMATOCRIT 27.1 % (37.0-47.0); MEAN CORPUSCULAR HEMOGLOBIN 33 pg (27.0-31.0)
[2020-04-28 10:09] LABS: BASOPHIL 3 % (0-2); EOSINOPHIL 4 % (0-4); LYMPHOCYTE 32 % (20.0-51.0); NEUTROPHILS 59 % (42.0-75.2)
[2020-04-28 10:10] LABS: OVALOCYTES 1+
[2020-04-28 10:11] LABS: ANISOCYTOSIS 2+; PLATELET ESTIMATE DECREASED (NORMAL)
[2020-04-28 10:15] LABS: SCHISTOCYTES 1+
[2020-05-05 09:16] VITALS: BP 156/88; PULSE 79; TEMP 98.3
[2020-05-05 09:16] LABS: MEAN CELL VOLUME 97 fl (80.0-100.0); MEAN CORPUSCULAR HGB CONC 34 g/dl (33.0-37.0); MEAN PLATELET VOLUME 12.1 fl (7.4-10.4); PLATELET COUNT 78 K/mm3 (130-400); REDCELL DISTRIBUTION WIDTH-CV 18.2 % (11.5-14.5); RETIC # 0.07 M/mm3 (0.02-0.16); RETIC % 2.8 % (0.5-3.52)
[2020-05-05 09:17] LABS: HEMATOCRIT 26.3 % (37.0-47.0); HEMOGLOBIN 8.8 g/dl (12.5-16.0); MEAN CORPUSCULAR HEMOGLOBIN 33 pg (27.0-31.0)
[2020-05-05 09:22] LABS: ALBUMIN 3.6 gm/dL (3.5-5.0); BILIRUBIN,TOTAL 0.5 mg/dL (0.0-1.0); CALCIUM 8.6 mg/dL (8.4-10.2); CREATININE, serum 0.93 (0.52-1.25); POTASSIUM 3.9 mmol/L (3.4-5.0); TOTAL PROTEIN 6.6 gm/dL (6.4-8.2)
[2020-05-05 10:04] LABS: BAND 2 % (0-10); BASOPHIL 1 % (0-2); EOSINOPHIL 2 % (0-4); LYMPHOCYTE 48 % (20.0-51.0); NEUTROPHILS 46 % (42.0-75.2); OVALOCYTES 1+; PLATELET ESTIMATE DECREASED (NORMAL); SCHISTOCYTES 1+; TEAR DROP CELLS 1+
[2020-05-12 09:18] LABS: MEAN CELL VOLUME 99 fl (80.0-100.0); MEAN CORPUSCULAR HGB CONC 33 g/dl (33.0-37.0); MEAN PLATELET VOLUME 10.6 fl (7.4-10.4); PLATELET COUNT 83 K/mm3 (130-400); REDCELL DISTRIBUTION WIDTH-CV 17.6 % (11.5-14.5)
[2020-05-12 09:24] VITALS: BP 151/88; PULSE 71; TEMP 98
[2020-05-12 09:24] LABS: HEMATOCRIT 27.6 % (37.0-47.0); HEMOGLOBIN 9.2 g/dl (12.5-16.0); MEAN CORPUSCULAR HEMOGLOBIN 33 pg (27.0-31.0)
[2020-05-12 09:57] LABS: BASOPHIL 3 % (0-2); EOSINOPHIL 1 % (0-4); LYMPHOCYTE 36 % (20.0-51.0); NEUTROPHILS 56 % (42.0-75.2)
[2020-05-12 10:01] LABS: ANISOCYTOSIS 2+; MICROCYTOSIS 1+; PLATELET ESTIMATE DECREASED (NORMAL); SCHISTOCYTES 1+
[2020-05-12 10:03] LABS: OVALOCYTES 1+; POIKILOCYTOSIS 1+
[2020-05-13 08:14] LABS: PATHOLOGY DIFF REVIEW OK
[~2020-05-19] VITALS: Ht 157.5 cm; Wt 60.7 kg
[~2020-05-19 09:00] MED LIST changes: +B-12 250 MCG PO
[2020-05-19 09:03] LABS: MEAN CELL VOLUME 98 fl (80.0-100.0); MEAN CORPUSCULAR HEMOGLOBIN 33 pg (27.0-31.0); MEAN CORPUSCULAR HGB CONC 33 g/dl (33.0-37.0); MEAN PLATELET VOLUME 10.7 fl (7.4-10.4); PLATELET COUNT 130 K/mm3 (130-400); RED BLOOD COUNT 3.06 M/mm3 (4.10-5.30); REDCELL DISTRIBUTION WIDTH-CV 16.5 % (11.5-14.5)
[2020-05-19 09:04] LABS: HEMATOCRIT 30.1 % (37.0-47.0)
[2020-05-19 09:25] LABS: ANISOCYTOSIS 1+; BASOPHIL 1 % (0-2); EOSINOPHIL 1 % (0-4); HYPOCHROMIA 1+; LYMPHOCYTE 30 % (20.0-51.0); NEUTROPHILS 62 % (42.0-75.2); OVALOCYTES 1+; PLATELET ESTIMATE NORMAL (NORMAL); POIKILOCYTOSIS 1+
[2020-05-19 09:27] VITALS: BP 171/91; PULSE 84; TEMP 97.8
== END 2020-05-25 | disposition home or self-care (01) ==
LOC: EUO
PROVIDERS: Internal Medicine Medical Oncology
DX: C50.412 Malignant neoplasm of upper-outer quadrant of left female breast (principal); D46.21 Refractory anemia with excess of blasts 1

== ENCOUNTER 2020-08-18 09:00 | Outpatient (RCR) | payer MEDICARE ==
[2020-05-26 09:15] VITALS: BP 155/84; PULSE 81; TEMP 98.6
[2020-05-26 09:41] LABS: MEAN CELL VOLUME 100 fl (80.0-100.0); MEAN CORPUSCULAR HGB CONC 34 g/dl (33.0-37.0); PLATELET COUNT 84 K/mm3 (130-400); RED BLOOD COUNT 2.84 M/mm3 (4.10-5.30); REDCELL DISTRIBUTION WIDTH-CV 16.3 % (11.5-14.5)
[2020-05-26 09:49] LABS: HEMATOCRIT 28.3 % (37.0-47.0); HEMOGLOBIN 9.5 g/dl (12.5-16.0); MEAN CORPUSCULAR HEMOGLOBIN 33 pg (27.0-31.0)
[2020-05-26 10:14] LABS: BAND 2 % (0-10); EOSINOPHIL 6 % (0-4); LYMPHOCYTE 45 % (20.0-51.0); NEUTROPHILS 46 % (42.0-75.2); NUCLEATED RED BLOOD CELL 1 (0-6); OVALOCYTES 2+; SCHISTOCYTES 1+; TEAR DROP CELLS 1+
[2020-05-26 10:15] LABS: PLATELET ESTIMATE DECREASED (NORMAL)
[2020-06-02 08:48] VITALS: BP 153/98; PULSE 82; TEMP 97.9
[2020-06-02 09:06] LABS: HEMOGLOBIN 10.4 g/dl (12.5-16.0); MEAN CELL VOLUME 97 fl (80.0-100.0); MEAN CORPUSCULAR HEMOGLOBIN 33 pg (27.0-31.0); MEAN CORPUSCULAR HGB CONC 34 g/dl (33.0-37.0); RED BLOOD COUNT 3.13 M/mm3 (4.10-5.30); RETIC # 0.09 M/mm3 (0.02-0.16); RETIC % 2.8 % (0.5-3.52)
[2020-06-02 09:08] LABS: HEMATOCRIT 30.3 % (37.0-47.0)
[2020-06-02 09:10] LABS: PLATELET COUNT 48 K/mm3 (130-400)
[2020-06-02 09:13] LABS: ALBUMIN 4.1 gm/dL (3.5-5.0); BILIRUBIN,TOTAL 0.5 mg/dL (0.0-1.0); CALCIUM 9.3 mg/dL (8.4-10.2); CREATININE, serum 0.97 (0.52-1.25); POTASSIUM 4.1 mmol/L (3.4-5.0); TOTAL PROTEIN 7.8 gm/dL (6.4-8.2)
[2020-06-02 09:44] LABS: BAND 1 % (0-10); BASOPHIL 2 % (0-2); EOSINOPHIL 6 % (0-4); LYMPHOCYTE 36 % (20.0-51.0); NEUTROPHILS 49 % (42.0-75.2)
[2020-06-02 09:45] LABS: MICROCYTOSIS 1+; OVALOCYTES 1+; PLATELET ESTIMATE DECREASED (NORMAL)
[2020-06-02 09:46] LABS: ANISOCYTOSIS 1+; POIKILOCYTOSIS 1+; SCHISTOCYTES 1+
[2020-06-09 09:06] VITALS: BP 156/103; PULSE 75; TEMP 98.6
[2020-06-09 09:17] LABS: MEAN CELL VOLUME 97 fl (80.0-100.0); MEAN CORPUSCULAR HGB CONC 34 g/dl (33.0-37.0); PLATELET COUNT 67 K/mm3 (130-400)
[2020-06-09 09:18] LABS: HEMATOCRIT 28.1 % (37.0-47.0); HEMOGLOBIN 9.6 g/dl (12.5-16.0); MEAN CORPUSCULAR HEMOGLOBIN 33 pg (27.0-31.0)
[2020-06-09 09:44] LABS: BASOPHIL 2 % (0-2); LYMPHOCYTE 42 % (20.0-51.0); NEUTROPHILS 51 % (42.0-75.2)
[2020-06-09 09:46] LABS: ANISOCYTOSIS 2+; PLATELET ESTIMATE DECREASED (NORMAL); POIKILOCYTOSIS 1+; SCHISTOCYTES 1+
[2020-06-09 09:47] LABS: OVALOCYTES 1+
[2020-06-16 09:43] LABS: HEMOGLOBIN 10.3 g/dl (12.5-16.0); MEAN CELL VOLUME 96 fl (80.0-100.0); MEAN CORPUSCULAR HEMOGLOBIN 33 pg (27.0-31.0); MEAN CORPUSCULAR HGB CONC 35 g/dl (33.0-37.0); MEAN PLATELET VOLUME 10.9 fl (7.4-10.4); PLATELET COUNT 101 K/mm3 (130-400); REDCELL DISTRIBUTION WIDTH-CV 15.9 % (11.5-14.5)
[2020-06-16 09:44] LABS: HEMATOCRIT 29.6 % (37.0-47.0)
[2020-06-16 10:20] LABS: BAND 1 % (0-10); EOSINOPHIL 1 % (0-4); LYMPHOCYTE 32 % (20.0-51.0); NEUTROPHILS 60 % (42.0-75.2); PLATELET ESTIMATE NORMAL (NORMAL)
[2020-06-16 10:22] LABS: OVALOCYTES 1+; POIKILOCYTOSIS 2+
[2020-06-16 10:23] VITALS: BP 147/83; PULSE 77; TEMP 98.5
[2020-06-16 10:23] LABS: ANISOCYTOSIS 1+; MICROCYTOSIS 1+; SCHISTOCYTES 1+
[2020-06-23 09:16] LABS: MEAN CELL VOLUME 97 fl (80.0-100.0); MEAN CORPUSCULAR HGB CONC 34 g/dl (33.0-37.0); MEAN PLATELET VOLUME 10.9 fl (7.4-10.4); PLATELET COUNT 72 K/mm3 (130-400); REDCELL DISTRIBUTION WIDTH-CV 15.6 % (11.5-14.5)
[2020-06-23 09:33] LABS: HEMATOCRIT 29.1 % (37.0-47.0); HEMOGLOBIN 9.9 g/dl (12.5-16.0); MEAN CORPUSCULAR HEMOGLOBIN 33 pg (27.0-31.0)
[2020-06-23 10:06] VITALS: BP 151/87; PULSE 75; TEMP 98.2
[2020-06-23 10:42] LABS: ANISOCYTOSIS 1+; BASOPHIL 3 % (0-2); EOSINOPHIL 6 % (0-4); LYMPHOCYTE 48 % (20.0-51.0); NEUTROPHILS 40 % (42.0-75.2); PLATELET ESTIMATE DECREASED (NORMAL)
[2020-06-23 10:44] LABS: OVALOCYTES 1+
[2020-06-30 09:17] VITALS: BP 150/90; PULSE 77; TEMP 98.5
[2020-06-30 09:19] LABS: ALBUMIN 3.8 gm/dL (3.5-5.0); BILIRUBIN,TOTAL 0.4 mg/dL (0.0-1.0); CALCIUM 8.9 mg/dL (8.4-10.2); CREATININE, serum 0.91 (0.52-1.25)
[2020-06-30 09:20] LABS: MEAN CELL VOLUME 95 fl (80.0-100.0); MEAN CORPUSCULAR HGB CONC 34 g/dl (33.0-37.0); REDCELL DISTRIBUTION WIDTH-CV 15.5 % (11.5-14.5); RETIC # 0.09 M/mm3 (0.02-0.16); RETIC % 3.1 % (0.5-3.52)
[2020-06-30 09:25] LABS: HEMATOCRIT 28.6 % (37.0-47.0); HEMOGLOBIN 9.8 g/dl (12.5-16.0); MEAN CORPUSCULAR HEMOGLOBIN 33 pg (27.0-31.0)
[2020-06-30 09:26] LABS: PLATELET COUNT 36 K/mm3 (130-400)
[2020-06-30 10:10] LABS: BAND 2 % (0-10); EOSINOPHIL 3 % (0-4); LYMPHOCYTE 57 % (20.0-51.0); NEUTROPHILS 35 % (42.0-75.2)
[2020-06-30 10:14] LABS: PLATELET ESTIMATE DECREASED (NORMAL)
[2020-06-30 10:20] LABS: ANISOCYTOSIS 1+; TEAR DROP CELLS 1+
[2020-06-30 10:21] LABS: POIKILOCYTOSIS 1+
[2020-06-30 10:23] LABS: OVALOCYTES 1+
[2020-07-07 09:55] VITALS: BP 148/83; PULSE 77; TEMP 97.8
[2020-07-07 10:04] LABS: MEAN CELL VOLUME 97 fl (80.0-100.0); MEAN CORPUSCULAR HGB CONC 34 g/dl (33.0-37.0); MEAN PLATELET VOLUME 12.3 fl (7.4-10.4); PLATELET COUNT 51 K/mm3 (130-400); RED BLOOD COUNT 2.95 M/mm3 (4.10-5.30); REDCELL DISTRIBUTION WIDTH-CV 15.9 % (11.5-14.5)
[2020-07-07 10:16] LABS: HEMOGLOBIN 9.7 g/dl (12.5-16.0); MEAN CORPUSCULAR HEMOGLOBIN 33 pg (27.0-31.0)
[2020-07-07 10:17] LABS: HEMATOCRIT 28.6 % (37.0-47.0)
[2020-07-07 10:58] LABS: BAND 3 % (0-10); EOSINOPHIL 1 % (0-4); LYMPHOCYTE 36 % (20.0-51.0); NEUTROPHILS 60 % (42.0-75.2); PLATELET ESTIMATE DECREASED (NORMAL)
[2020-07-07 10:59] LABS: HYPOCHROMIA 1+; OVALOCYTES 1+
[2020-07-07 11:02] LABS: TEAR DROP CELLS 1+
[2020-07-14 09:03] VITALS: BP 159/92; PULSE 80; TEMP 98.4
[2020-07-14 09:07] LABS: MEAN CELL VOLUME 95 fl (80.0-100.0); MEAN CORPUSCULAR HGB CONC 34 g/dl (33.0-37.0); MEAN PLATELET VOLUME 12.3 fl (7.4-10.4); PLATELET COUNT 77 K/mm3 (130-400); RED BLOOD COUNT 3.02 M/mm3 (4.10-5.30); REDCELL DISTRIBUTION WIDTH-CV 15.8 % (11.5-14.5)
[2020-07-14 09:15] LABS: HEMOGLOBIN 9.7 g/dl (12.5-16.0); MEAN CORPUSCULAR HEMOGLOBIN 32 pg (27.0-31.0)
[2020-07-14 09:16] LABS: HEMATOCRIT 28.6 % (37.0-47.0)
[2020-07-14 10:04] LABS: EOSINOPHIL 8 % (0-4); NEUTROPHILS 59 % (42.0-75.2)
[2020-07-14 10:08] LABS: PLATELET ESTIMATE DECREASED (NORMAL)
[2020-07-14 10:09] LABS: MICROCYTOSIS 1+; OVALOCYTES 1+
[2020-07-14 10:10] LABS: ANISOCYTOSIS 1+; POIKILOCYTOSIS 1+
[2020-07-14 10:11] LABS: LYMPHOCYTE 29 % (20.0-51.0)
[2020-07-21 09:05] LABS: MEAN CELL VOLUME 95 fl (80.0-100.0); MEAN CORPUSCULAR HGB CONC 35 g/dl (33.0-37.0); PLATELET COUNT 59 K/mm3 (130-400); RED BLOOD COUNT 2.92 M/mm3 (4.10-5.30); REDCELL DISTRIBUTION WIDTH-CV 15.4 % (11.5-14.5)
[2020-07-21 09:18] LABS: HEMATOCRIT 27.8 % (37.0-47.0); HEMOGLOBIN 9.7 g/dl (12.5-16.0); MEAN CORPUSCULAR HEMOGLOBIN 33 pg (27.0-31.0)
[2020-07-21 09:28] VITALS: BP 146/93; PULSE 94; TEMP 98.6
[2020-07-21 10:07] LABS: ANISOCYTOSIS 1+; EOSINOPHIL 4 % (0-4); LYMPHOCYTE 36 % (20.0-51.0); NEUTROPHILS 56 % (42.0-75.2); PLATELET ESTIMATE DECREASED (NORMAL)
[2020-07-21 10:11] LABS: STOMATOCYTE 1+
[2020-07-21 10:15] LABS: TEAR DROP CELLS 1+
[2020-07-21 10:16] LABS: OVALOCYTES 2+; SCHISTOCYTES 1+
[2020-07-22 08:41] LABS: PATHOLOGY DIFF REVIEW OK
[2020-07-28 08:58] VITALS: BP 160/82; PULSE 101; TEMP 97.9
[2020-07-28 09:17] LABS: MEAN CELL VOLUME 96 fl (80.0-100.0); MEAN CORPUSCULAR HGB CONC 35 g/dl (33.0-37.0); RED BLOOD COUNT 2.82 M/mm3 (4.10-5.30); REDCELL DISTRIBUTION WIDTH-CV 16.2 % (11.5-14.5); RETIC # 0.11 M/mm3 (0.02-0.16)
[2020-07-28 09:22] LABS: HEMOGLOBIN 9.4 g/dl (12.5-16.0); MEAN CORPUSCULAR HEMOGLOBIN 33 pg (27.0-31.0)
[2020-07-28 09:23] LABS: PLATELET COUNT 23 K/mm3 (130-400)
[2020-07-28 09:25] LABS: ALBUMIN 3.9 gm/dL (3.5-5.0); BILIRUBIN,TOTAL 0.9 mg/dL (0.0-1.0); CALCIUM 9.1 mg/dL (8.4-10.2); CREATININE, serum 0.97 (0.52-1.25); POTASSIUM 3.7 mmol/L (3.4-5.0); TOTAL PROTEIN 7.5 gm/dL (6.4-8.2)
[2020-07-28 09:51] LABS: BAND 3 % (0-10); BASOPHIL 3 % (0-2); EOSINOPHIL 3 % (0-4); LYMPHOCYTE 28 % (20.0-51.0); NEUTROPHILS 62 % (42.0-75.2)
[2020-07-28 09:53] LABS: ANISOCYTOSIS 1+; MICROCYTOSIS 1+; PLATELET ESTIMATE DECREASED (NORMAL)
[2020-08-04 09:00] VITALS: BP 149/92; PULSE 78; TEMP 98.2
[2020-08-04 09:26] LABS: MEAN CELL VOLUME 95 fl (80.0-100.0); MEAN CORPUSCULAR HGB CONC 35 g/dl (33.0-37.0); RED BLOOD COUNT 2.73 M/mm3 (4.10-5.30); REDCELL DISTRIBUTION WIDTH-CV 16.3 % (11.5-14.5)
[2020-08-04 09:31] LABS: HEMATOCRIT 25.9 % (37.0-47.0); MEAN CORPUSCULAR HEMOGLOBIN 33 pg (27.0-31.0)
[2020-08-04 09:32] LABS: PLATELET COUNT 39 K/mm3 (130-400)
[2020-08-04 10:13] LABS: ANISOCYTOSIS 1+; BAND 1 % (0-10); BASOPHIL 1 % (0-2); EOSINOPHIL 3 % (0-4); MICROCYTOSIS 1+; NEUTROPHILS 29 % (42.0-75.2); SCHISTOCYTES 1+
[2020-08-04 10:14] LABS: LYMPHOCYTE 65 % (20.0-51.0); PLATELET ESTIMATE DECREASED (NORMAL)
[2020-08-11 08:52] VITALS: BP 146/84; PULSE 80; TEMP 98.3
[2020-08-11 09:10] LABS: MEAN CELL VOLUME 97 fl (80.0-100.0); MEAN CORPUSCULAR HGB CONC 34 g/dl (33.0-37.0); MEAN PLATELET VOLUME 13.2 fl (7.4-10.4); PLATELET COUNT 54 K/mm3 (130-400); RED BLOOD COUNT 2.78 M/mm3 (4.10-5.30); REDCELL DISTRIBUTION WIDTH-CV 17.6 % (11.5-14.5)
[2020-08-11 09:33] LABS: ANISOCYTOSIS 2+; BASOPHIL 3 % (0-2); LYMPHOCYTE 59 % (20.0-51.0); NEUTROPHILS 35 % (42.0-75.2); NUCLEATED RED BLOOD CELL 1 (0-6); PLATELET ESTIMATE DECREASED (NORMAL)
[2020-08-11 09:40] LABS: SCHISTOCYTES 1+
[2020-08-11 09:41] LABS: OVALOCYTES 1+
[2020-08-11 09:49] LABS: HEMOGLOBIN 9.2 g/dl (12.5-16.0); MEAN CORPUSCULAR HEMOGLOBIN 33 pg (27.0-31.0)
[~2020-08-18] VITALS: Ht 157.5 cm; Wt 63.2 kg
[2020-08-18 09:07] LABS: MEAN CELL VOLUME 98 fl (80.0-100.0); MEAN CORPUSCULAR HGB CONC 34 g/dl (33.0-37.0); MEAN PLATELET VOLUME 12.7 fl (7.4-10.4); RED BLOOD COUNT 2.81 M/mm3 (4.10-5.30); REDCELL DISTRIBUTION WIDTH-CV 17.2 % (11.5-14.5)
[2020-08-18 09:14] VITALS: BP 146/68; PULSE 72; TEMP 98
[2020-08-18 09:22] LABS: HEMATOCRIT 27.4 % (37.0-47.0); HEMOGLOBIN 9.2 g/dl (12.5-16.0); MEAN CORPUSCULAR HEMOGLOBIN 33 pg (27.0-31.0)
[2020-08-18 09:28] LABS: PLATELET COUNT 48 K/mm3 (130-400)
[2020-08-18 09:40] LABS: EOSINOPHIL 3 % (0-4); LYMPHOCYTE 53 % (20.0-51.0); NEUTROPHILS 41 % (42.0-75.2); PLATELET ESTIMATE DECREASED (NORMAL); SCHISTOCYTES 1+
[2020-08-18 09:41] LABS: ANISOCYTOSIS 2+; OVALOCYTES 1+
== END 2020-08-24 ==
LOC: EUO
PROVIDERS: Internal Medicine Medical Oncology
DX: D46.21 Refractory anemia with excess of blasts 1 (principal)

== ENCOUNTER 2020-11-03 09:00 | Outpatient (RCR) | payer MEDICARE ==
[2020-08-25 09:09] VITALS: BP 154/89; PULSE 98; TEMP 98.3
[2020-08-25 09:38] LABS: MEAN CELL VOLUME 98 fl (80.0-100.0); MEAN CORPUSCULAR HGB CONC 35 g/dl (33.0-37.0); RED BLOOD COUNT 2.55 M/mm3 (4.10-5.30); REDCELL DISTRIBUTION WIDTH-CV 17.4 % (11.5-14.5); RETIC % 3.8 % (0.5-3.52)
[2020-08-25 09:44] LABS: ALBUMIN 3.8 gm/dL (3.5-5.0); BILIRUBIN,TOTAL 0.6 mg/dL (0.0-1.0); CALCIUM 9.1 mg/dL (8.4-10.2); CREATININE, serum 0.94 (0.52-1.25); POTASSIUM 3.9 mmol/L (3.4-5.0); TOTAL PROTEIN 7.1 gm/dL (6.4-8.2)
[2020-08-25 09:45] LABS: HEMATOCRIT 24.9 % (37.0-47.0); HEMOGLOBIN 8.7 g/dl (12.5-16.0); MEAN CORPUSCULAR HEMOGLOBIN 34 pg (27.0-31.0)
[2020-08-25 09:46] LABS: PLATELET COUNT 39 K/mm3 (130-400)
[2020-08-25 10:21] LABS: BAND 7 % (0-10); BASOPHIL 3 % (0-2); EOSINOPHIL 2 % (0-4); LYMPHOCYTE 50 % (20.0-51.0); METAMYELOCYTE 1 % (0-0); NEUTROPHILS 34 % (42.0-75.2); NUCLEATED RED BLOOD CELL 2 (0-6); PLATELET ESTIMATE DECREASED (NORMAL)
[2020-08-25 10:22] LABS: ANISOCYTOSIS 2+; SCHISTOCYTES 1+
[2020-09-01 08:49] VITALS: BP 148/86; PULSE 80; TEMP 97.5
[2020-09-01 09:11] LABS: MEAN CELL VOLUME 100 fl (80.0-100.0); MEAN CORPUSCULAR HGB CONC 34 g/dl (33.0-37.0); RED BLOOD COUNT 2.63 M/mm3 (4.10-5.30); REDCELL DISTRIBUTION WIDTH-CV 18.5 % (11.5-14.5)
[2020-09-01 09:21] LABS: HEMATOCRIT 26.4 % (37.0-47.0); MEAN CORPUSCULAR HEMOGLOBIN 34 pg (27.0-31.0); PLATELET COUNT 13 K/mm3 (130-400)
[2020-09-01 09:29] LABS: BAND 1 % (0-10); BASOPHIL 1 % (0-2); EOSINOPHIL 1 % (0-4); NEUTROPHILS 19 % (42.0-75.2); NUCLEATED RED BLOOD CELL 2 (0-6)
[2020-09-01 09:30] LABS: ANISOCYTOSIS 2+; PLATELET ESTIMATE DECREASED (NORMAL)
[2020-09-01 09:31] LABS: MICROCYTOSIS 1+; OVALOCYTES 1+; POIKILOCYTOSIS 2+; TEAR DROP CELLS 1+
[2020-09-01 09:32] LABS: SCHISTOCYTES 1+
[2020-09-01 09:33] LABS: LYMPHOCYTE 77 % (20.0-51.0)
[2020-09-02 14:45] VITALS: BP 150/92; PULSE 84; TEMP 98.7
[2020-09-02 15:00] VITALS: BP 147/96; PULSE 84; TEMP 98.5
[2020-09-02 15:15] VITALS: BP 153/97; PULSE 80
[2020-09-02 15:30] VITALS: BP 151/95; PULSE 84; TEMP 98.3
[2020-09-02 16:00] VITALS: BP 153/92; PULSE 84; TEMP 98.7
[2020-09-02 16:32] VITALS: BP 158/90; PULSE 80; TEMP 98.7
[2020-09-08 09:29] LABS: MEAN CELL VOLUME 100 fl (80.0-100.0); MEAN CORPUSCULAR HGB CONC 34 g/dl (33.0-37.0); RED BLOOD COUNT 2.57 M/mm3 (4.10-5.30); REDCELL DISTRIBUTION WIDTH-CV 18.6 % (11.5-14.5)
[2020-09-08 09:33] LABS: HEMATOCRIT 25.7 % (37.0-47.0); HEMOGLOBIN 8.8 g/dl (12.5-16.0); MEAN CORPUSCULAR HEMOGLOBIN 34 pg (27.0-31.0)
[2020-09-08 09:36] LABS: PLATELET COUNT 16 K/mm3 (130-400)
[2020-09-08 10:08] VITALS: BP 155/98; PULSE 83; TEMP 98.2
[2020-09-08 10:11] LABS: LYMPHOCYTE 72 % (20.0-51.0); NEUTROPHILS 26 % (42.0-75.2); PLATELET ESTIMATE DECREASED (NORMAL)
[2020-09-08 10:12] LABS: ANISOCYTOSIS 2+; MICROCYTOSIS 1+; POIKILOCYTOSIS 2+
[2020-09-08 10:13] LABS: OVALOCYTES 1+; SCHISTOCYTES 1+; TEAR DROP CELLS 1+
[2020-09-10 13:37] VITALS: BP 148/68; PULSE 89; TEMP 98
[2020-09-10 13:57] VITALS: BP 136/59; PULSE 83; TEMP 98.5
[2020-09-10 14:12] VITALS: BP 141/58; PULSE 77; TEMP 98.1
[2020-09-10 14:42] VITALS: BP 144/55; PULSE 79; TEMP 97.9
[2020-09-10 15:42] VITALS: BP 151/54; PULSE 79; TEMP 98.2
[2020-09-15 09:08] VITALS: BP 169/87; PULSE 84; TEMP 98.1
[2020-09-15 09:17] LABS: MEAN CELL VOLUME 100 fl (80.0-100.0); MEAN CORPUSCULAR HGB CONC 35 g/dl (33.0-37.0); RED BLOOD COUNT 2.47 M/mm3 (4.10-5.30); REDCELL DISTRIBUTION WIDTH-CV 18.6 % (11.5-14.5)
[2020-09-15 09:21] LABS: HEMATOCRIT 24.6 % (37.0-47.0); HEMOGLOBIN 8.5 g/dl (12.5-16.0); MEAN CORPUSCULAR HEMOGLOBIN 34 pg (27.0-31.0)
[2020-09-15 09:22] LABS: PLATELET COUNT 24 K/mm3 (130-400)
[2020-09-15 09:51] LABS: BASOPHIL 1 % (0-2); EOSINOPHIL 3 % (0-4); LYMPHOCYTE 61 % (20.0-51.0); NEUTROPHILS 29 % (42.0-75.2)
[2020-09-15 09:53] LABS: ANISOCYTOSIS 2+; OVALOCYTES 2+; PLATELET ESTIMATE DECREASED (NORMAL); TEAR DROP CELLS 1+
[2020-09-22 09:15] VITALS: BP 158/95; PULSE 90; TEMP 98.1
[2020-09-22 09:27] LABS: MEAN CELL VOLUME 99 fl (80.0-100.0); MEAN CORPUSCULAR HGB CONC 34 g/dl (33.0-37.0); RED BLOOD COUNT 2.62 M/mm3 (4.10-5.30); REDCELL DISTRIBUTION WIDTH-CV 18.5 % (11.5-14.5)
[2020-09-22 09:29] LABS: HEMATOCRIT 25.9 % (37.0-47.0); HEMOGLOBIN 8.9 g/dl (12.5-16.0); MEAN CORPUSCULAR HEMOGLOBIN 34 pg (27.0-31.0)
[2020-09-22 09:32] LABS: PLATELET COUNT 27 K/mm3 (130-400)
[2020-09-22 10:13] LABS: BAND 2 % (0-10); EOSINOPHIL 7 % (0-4); LYMPHOCYTE 72 % (20.0-51.0); METAMYELOCYTE 1 % (0-0); NEUTROPHILS 15 % (42.0-75.2); PLATELET ESTIMATE DECREASED (NORMAL)
[2020-09-22 10:14] LABS: OVALOCYTES 1+; SCHISTOCYTES 1+; TARGET CELLS 1+
[2020-09-29 09:07] LABS: MEAN CELL VOLUME 100 fl (80.0-100.0); MEAN CORPUSCULAR HGB CONC 34 g/dl (33.0-37.0); RED BLOOD COUNT 2.63 M/mm3 (4.10-5.30); REDCELL DISTRIBUTION WIDTH-CV 18.7 % (11.5-14.5)
[2020-09-29 09:08] VITALS: BP 144/85; PULSE 82; TEMP 98.3
[2020-09-29 09:13] LABS: HEMATOCRIT 26.3 % (37.0-47.0); HEMOGLOBIN 8.9 g/dl (12.5-16.0); MEAN CORPUSCULAR HEMOGLOBIN 34 pg (27.0-31.0)
[2020-09-29 09:14] LABS: PLATELET COUNT 26 K/mm3 (130-400)
[2020-09-29 10:03] LABS: ANISOCYTOSIS 2+; BAND 1 % (0-10); EOSINOPHIL 2 % (0-4); LYMPHOCYTE 66 % (20.0-51.0); NEUTROPHILS 25 % (42.0-75.2); NUCLEATED RED BLOOD CELL 2 (0-6); PLATELET ESTIMATE DECREASED (NORMAL)
[2020-09-29 10:08] LABS: OVALOCYTES 2+
[2020-09-29 10:09] LABS: TEAR DROP CELLS 1+
[2020-09-29 10:10] LABS: SCHISTOCYTES 1+
[2020-10-01 07:28] LABS: PATHOLOGY DIFF REVIEW OK +
[2020-10-06 09:07] VITALS: BP 154/84; PULSE 87; TEMP 97.7
[2020-10-06 09:27] LABS: MEAN CELL VOLUME 101 fl (80.0-100.0); MEAN CORPUSCULAR HGB CONC 34 g/dl (33.0-37.0); RED BLOOD COUNT 2.53 M/mm3 (4.10-5.30); REDCELL DISTRIBUTION WIDTH-CV 19.5 % (11.5-14.5)
[2020-10-06 09:30] LABS: HEMATOCRIT 25.5 % (37.0-47.0); HEMOGLOBIN 8.7 g/dl (12.5-16.0); MEAN CORPUSCULAR HEMOGLOBIN 34 pg (27.0-31.0)
[2020-10-06 09:32] LABS: PLATELET COUNT 16 K/mm3 (130-400)
[2020-10-06 09:59] LABS: BAND 1 % (0-10); BASOPHIL 1 % (0-2); EOSINOPHIL 1 % (0-4); METAMYELOCYTE 1 % (0-0); NEUTROPHILS 18 % (42.0-75.2); NUCLEATED RED BLOOD CELL 1 (0-6)
[2020-10-06 10:00] LABS: LYMPHOCYTE 72 % (20.0-51.0)
[2020-10-06 10:01] LABS: ANISOCYTOSIS 2+; MICROCYTOSIS 2+; OVALOCYTES 1+; SCHISTOCYTES 1+
[2020-10-06 10:02] LABS: PLATELET ESTIMATE DECREASED (NORMAL)
[2020-10-07 07:45] LABS: PATHOLOGY DIFF REVIEW OK +
[2020-10-13 08:58] LABS: MEAN CELL VOLUME 99 fl (80.0-100.0); MEAN CORPUSCULAR HGB CONC 35 g/dl (33.0-37.0); RED BLOOD COUNT 2.48 M/mm3 (4.10-5.30); REDCELL DISTRIBUTION WIDTH-CV 19.5 % (11.5-14.5)
[2020-10-13 09:00] VITALS: BP 174/95; PULSE 95; TEMP 98.6
[2020-10-13 09:09] LABS: HEMATOCRIT 24.5 % (37.0-47.0); HEMOGLOBIN 8.5 g/dl (12.5-16.0); MEAN CORPUSCULAR HEMOGLOBIN 34 pg (27.0-31.0)
[2020-10-13 09:10] LABS: PLATELET COUNT 15 K/mm3 (130-400)
[2020-10-13 09:11] LABS: CHOLESTEROL RISK RATIO 3.2
[2020-10-13 09:50] LABS: EOSINOPHIL 1 % (0-4); NEUTROPHILS 46 % (42.0-75.2); NUCLEATED RED BLOOD CELL 1 (0-6)
[2020-10-13 09:50] LABS: ALBUMIN 4.3 gm/dL (3.5-5.0); BILIRUBIN,TOTAL 0.7 mg/dL (0.0-1.0); CALCIUM 9.1 mg/dL (8.4-10.2); CREATININE, serum 0.99 (0.52-1.25); TOTAL PROTEIN 7.8 gm/dL (6.4-8.2)
[2020-10-13 09:51] LABS: ANISOCYTOSIS 2+; MICROCYTOSIS 2+; OVALOCYTES 1+; PLATELET ESTIMATE DECREASED (NORMAL); POIKILOCYTOSIS 2+; TARGET CELLS 1+; TEAR DROP CELLS 1+
[2020-10-13 09:53] LABS: SCHISTOCYTES 1+
[2020-10-13 09:54] LABS: LYMPHOCYTE 42 % (20.0-51.0)
[2020-10-13 10:10] LABS: TSH w REFLEX 3.031 uIU/mL (0.350-4.940)
[2020-10-13 23:56] LABS: HEPATITIS C VIRUS ANTIBODY Negative (Negative)
[2020-10-20 09:26] VITALS: BP 153/86; PULSE 80; TEMP 98.1
[2020-10-20 09:33] LABS: MEAN CELL VOLUME 100 fl (80.0-100.0); MEAN CORPUSCULAR HGB CONC 34 g/dl (33.0-37.0); RED BLOOD COUNT 2.32 M/mm3 (4.10-5.30); REDCELL DISTRIBUTION WIDTH-CV 19.3 % (11.5-14.5)
[2020-10-20 09:34] LABS: HEMATOCRIT 23.1 % (37.0-47.0); HEMOGLOBIN 7.8 g/dl (12.5-16.0); MEAN CORPUSCULAR HEMOGLOBIN 34 pg (27.0-31.0)
[2020-10-20 09:35] LABS: PLATELET COUNT 17 K/mm3 (130-400)
[2020-10-20 10:00] LABS: ANISOCYTOSIS 1+; BAND 5 % (0-10); EOSINOPHIL 1 % (0-4); LYMPHOCYTE 49 % (20.0-51.0); METAMYELOCYTE 1 % (0-0); NEUTROPHILS 39 % (42.0-75.2); NUCLEATED RED BLOOD CELL 1 (0-6); OVALOCYTES 1+; PLATELET ESTIMATE DECREASED (NORMAL); SCHISTOCYTES 2+; TEAR DROP CELLS 1+
[2020-10-22 14:07] VITALS: BP 145/78; PULSE 86; TEMP 98.2
[2020-10-22 14:22] VITALS: BP 145/841; PULSE 82; TEMP 98.4
[2020-10-22 14:52] VITALS: BP 148/85; PULSE 79; TEMP 98.6
[2020-10-22 15:24] VITALS: BP 157/90; PULSE 92; TEMP 98.2
[2020-10-23 10:12] VITALS: BP 163/64; PULSE 94; TEMP 98.3
[2020-10-23 10:27] VITALS: BP 164/58; PULSE 87; TEMP 98.6
[2020-10-23 10:50] VITALS: BP 160/60; PULSE 88; TEMP 98.6
[2020-10-23 11:46] VITALS: BP 178/65; PULSE 88; TEMP 98.3
[2020-10-23 13:07] VITALS: BP 167/61; PULSE 88; TEMP 98.6
[2020-10-27 09:01] LABS: MEAN CELL VOLUME 90 fl (80.0-100.0); MEAN CORPUSCULAR HGB CONC 35 g/dl (33.0-37.0); RED BLOOD COUNT 3.14 M/mm3 (4.10-5.30); REDCELL DISTRIBUTION WIDTH-CV 17.7 % (11.5-14.5)
[2020-10-27 09:04] VITALS: BP 149/74; PULSE 80; TEMP 97.5
[2020-10-27 09:40] LABS: HEMATOCRIT 28.4 % (37.0-47.0); HEMOGLOBIN 9.9 g/dl (12.5-16.0); MEAN CORPUSCULAR HEMOGLOBIN 32 pg (27.0-31.0)
[2020-10-27 09:41] LABS: PLATELET COUNT 22 K/mm3 (130-400)
[2020-10-27 10:14] LABS: BAND 6 % (0-10); LYMPHOCYTE 46 % (20.0-51.0); METAMYELOCYTE 1 % (0-0); NEUTROPHILS 40 % (42.0-75.2); PLATELET ESTIMATE DECREASED (NORMAL)
[2020-10-27 10:15] LABS: ANISOCYTOSIS 1+; OVALOCYTES 2+; SCHISTOCYTES 2+; TEAR DROP CELLS 1+
[~2020-11-03] VITALS: Ht 157.5 cm; Wt 66.9 kg
[2020-11-03 09:01] VITALS: BP 138/88; PULSE 83; TEMP 99.2
[2020-11-03 09:11] LABS: MEAN CELL VOLUME 93 fl (80.0-100.0); MEAN CORPUSCULAR HGB CONC 34 g/dl (33.0-37.0); RED BLOOD COUNT 2.91 M/mm3 (4.10-5.30); REDCELL DISTRIBUTION WIDTH-CV 17.4 % (11.5-14.5)
[2020-11-03 09:14] LABS: HEMOGLOBIN 9.3 g/dl (12.5-16.0); MEAN CORPUSCULAR HEMOGLOBIN 32 pg (27.0-31.0)
[2020-11-03 09:15] LABS: PLATELET COUNT 15 K/mm3 (130-400)
[2020-11-03 10:01] LABS: BAND 2 % (0-10); NEUTROPHILS 32 % (42.0-75.2)
[2020-11-03 10:07] LABS: ANISOCYTOSIS 1+; MICROCYTOSIS 1+; OVALOCYTES 1+; SCHISTOCYTES 1+
[2020-11-03 10:08] LABS: POIKILOCYTOSIS 1+
[2020-11-03 10:10] LABS: LYMPHOCYTE 58 % (20.0-51.0)
[2020-11-03 10:30] LABS: PLATELET ESTIMATE DECREASED (NORMAL)
[2020-11-05 08:58] LABS: PATHOLOGY DIFF REVIEW OK
[2020-11-08] MEDS ORDERED: OSCAL 500 TAB500 MG PO (13:46)
[2020-11-19] MEDS ORDERED: NORVASC 10MG10 MG PO (09:10)
[2020-11-19] MEDS ORDERED: NORCO 325 MG-51 TAB PO (09:11)
== END 2020-11-19 11:16 | disposition home or self-care (01) ==
LOC: EUO 09:00
PROVIDERS: Internal Medicine; Internal Medicine Medical Oncology
DX: D46.21 Refractory anemia with excess of blasts 1 (principal); Z95.9 Presence of cardiac and vascular implant and graft, unspecified
CPT/HCPCS: 87522; J7050; P9035; P9040

== ENCOUNTER 2020-11-08 09:10 | Inpatient (IN) | payer MEDICARE ==
[2020-11-08] VITALS (11 sets, daily range): BP systolic 109–148; BP diastolic 41–63; PULSE 93–103; TEMP 98.2–101.2
[~2020-11-08] VITALS: Ht 157.5 cm; Wt 67.9 kg
[2020-11-08 10:20] LABS: MEAN CELL VOLUME 89 fl (80.0-100.0); MEAN CORPUSCULAR HGB CONC 34 g/dl (33.0-37.0); RED BLOOD COUNT 2.78 M/mm3 (4.10-5.30); REDCELL DISTRIBUTION WIDTH-CV 17.1 % (11.5-14.5)
[2020-11-08 10:23] LABS: HEMATOCRIT 24.8 % (37.0-47.0); HEMOGLOBIN 8.5 g/dl (12.5-16.0); MEAN CORPUSCULAR HEMOGLOBIN 31 pg (27.0-31.0)
[2020-11-08 10:24] LABS: PLATELET COUNT 13 K/mm3 (130-400)
[2020-11-08 10:32] LABS: BILIRUBIN,TOTAL 0.9 mg/dL (0.0-1.0); C-REACTIVE PROTEIN 6.2 mg/dL (0.0-0.9); CALCIUM 8.6 mg/dL (8.4-10.2); CREATININE, serum 1.08 (0.52-1.25); POTASSIUM 4.3 mmol/L (3.4-5.0); TOTAL PROTEIN 7.6 gm/dL (6.4-8.2)
[2020-11-08 10:53] LABS: BAND 13 % (0-10); EOSINOPHIL 1 % (0-4); LYMPHOCYTE 31 % (20.0-51.0); NEUTROPHILS 49 % (42.0-75.2)
[2020-11-08 10:55] LABS: MICROCYTOSIS 1+; OVALOCYTES 1+; SCHISTOCYTES 1+
[2020-11-08] MEDS ORDERED: OSCAL 500 TAB500 MG PO (13:46)
--- NOTE | 2020-11-08 14:07 | NUR ---
Patient up from ER. Alert and oriented x 3. Assessment complete. Patient oriented to room. Patient denies pain at this time. Picc line to DIMITRIS, notified Claudia of patient admission with PICC line. Denies needs at this time.
--- NOTE | 2020-11-08 19:06 | NUR ---
Patient doing well today, denies pain. Contacted Dr. Rivera this afternoon for temp during platelet infusion, per Dr. Rivera continue transfusion. Patient otherwise asymptomatic. Denies further needs at this time. Will report off to night assistant.
--- NOTE | 2020-11-08 20:30 | NUR ---
Dr Rivera notified of plt level 23, wants 2nd unit of platelets given now, repeat level and call him back.
[2020-11-09] VITALS (20 sets, daily range): BP systolic 105–171; BP diastolic 36–98; PULSE 69–108; TEMP 97.4–99.5
--- NOTE | 2020-11-09 00:01 | NUR ---
Pt transferred to PACU per bed accompanied by DAY TREATMENT CLINICIAN/ART THERAPIST, alert and oriented, IVF infusing per PICC line in DIMITRIS. pt's belongings secured in closet in room per her request. pt does not want spouse notified that she is going to surgery.
--- NOTE | 2020-11-09 01:30 | NUR ---
PT RETURNED TO ROOM 330 PER BED, AWAKE AND ALERT, IVF INFUSING PER PICC IN [place] TO ABDOMEN X3 C/D/I
[2020-11-09 06:43] LABS: MEAN CELL VOLUME 92 fl (80.0-100.0); MEAN CORPUSCULAR HGB CONC 34 g/dl (33.0-37.0); MEAN PLATELET VOLUME 9.5 fl (7.4-10.4); RED BLOOD COUNT 2.24 M/mm3 (4.10-5.30); REDCELL DISTRIBUTION WIDTH-CV 17.2 % (11.5-14.5)
[2020-11-09 06:53] LABS: HEMATOCRIT 20.5 % (37.0-47.0); HEMOGLOBIN 6.9 g/dl (12.5-16.0); MEAN CORPUSCULAR HEMOGLOBIN 31 pg (27.0-31.0)
[2020-11-09 06:54] LABS: PLATELET COUNT 49 K/mm3 (130-400)
[2020-11-09 07:01] LABS: CALCIUM 7.8 mg/dL (8.4-10.2); CREATININE, serum 0.94 (0.52-1.25); POTASSIUM 3.7 mmol/L (3.4-5.0)
[2020-11-09 08:26] LABS: BAND 4 % (0-10); BASOPHIL 1 % (0-2); LYMPHOCYTE 39 % (20.0-51.0); METAMYELOCYTE 2 % (0-0); NEUTROPHILS 51 % (42.0-75.2)
[2020-11-09 08:27] LABS: ANISOCYTOSIS 1+; OVALOCYTES 2+; PLATELET ESTIMATE DECREASED (NORMAL); SCHISTOCYTES 1+; TEAR DROP CELLS 1+
--- NOTE | 2020-11-09 08:53 | NUR ---
DR VELAZQUEZ ROUNDED ON PT THIS AM. PT WILL RECIEVE 2 IRRADIATED UNITS PRBCS TODAY PER TJ. PT RESTING IN BED, AT BEDSIDE. PICC LINE TO DIMITRIS IS CDI IV ABX RUNNING. INT AFTER ABX INFUSED UNTIL BLOOD ADMINISTRATION PER DR VELAZQUEZ. ABDOMINAL INCISION CDI ORTHODONTIC TECHNICIAN ASSISTANT. PT DENIES PAIN OR NEEDS AT THIS TIME.
--- NOTE | 2020-11-09 10:09 | NUR ---
Initial visit; Patient and her thanked Neuro Urologist for looking in on her and offering encouragement and prayer.
--- NOTE | 2020-11-09 10:52 | NUR ---
SPOKE WITH DR VELAZQUEZ AND CLARIFIED BLOOD ORDER FOR IRRADIATED BLOOD
--- NOTE | 2020-11-09 10:54 | NUR ---
SW met with the patient to discuss discharge plan. The patient lives in [place] with her , Golden (ph#[phone]). She reports independence with ADLs and has a walker. The patient's PCP is Dr. Stefanie Ochoa and she receives her medications from [facility]. She reports no difficulties obtaining her meds. The patient does no have a DPOA-HC, but she reports that she does have one completed and that the documents are at home. She states that her daughter, Kerry Galicia (ph#[phone], is her DPOA-HC. JEMIMA contacted Melia, social science professor, with Dr. Ochoa to inquire if they have a copy on file. Melia reports that they do not. The patient plans to return home with her upon discharge. SW to follow as needed. *Discharge plan: home with *
--- NOTE | 2020-11-09 14:34 | NUR ---
BLOOD CONTINUES TO RUN PT TOLERATING WELL.
[2020-11-09 15:58] LABS: HEMATOCRIT 27.8 % (37.0-47.0); HEMOGLOBIN 9.8 g/dl (12.5-16.0); MEAN CELL VOLUME 88 fl (80.0-100.0); MEAN CORPUSCULAR HEMOGLOBIN 31 pg (27.0-31.0); MEAN CORPUSCULAR HGB CONC 35 g/dl (33.0-37.0); MEAN PLATELET VOLUME 10.4 fl (7.4-10.4); PLATELET COUNT 52 K/mm3 (130-400); RED BLOOD COUNT 3.17 M/mm3 (4.10-5.30); REDCELL DISTRIBUTION WIDTH-CV 16.2 % (11.5-14.5)
--- NOTE | 2020-11-09 18:52 | NUR ---
REPORT TO SANDEEP SAAVEDRA.
[2020-11-10] VITALS (7 sets, daily range): BP systolic 138–179; BP diastolic 57–80; PULSE 91–98; TEMP 97.4–98.6
[2020-11-10 05:54] LABS: MEAN CELL VOLUME 87 fl (80.0-100.0); MEAN CORPUSCULAR HGB CONC 36 g/dl (33.0-37.0); RED BLOOD COUNT 3.07 M/mm3 (4.10-5.30); REDCELL DISTRIBUTION WIDTH-CV 17.2 % (11.5-14.5)
[2020-11-10 05:56] LABS: HEMATOCRIT 26.8 % (37.0-47.0); HEMOGLOBIN 9.6 g/dl (12.5-16.0); MEAN CORPUSCULAR HEMOGLOBIN 31 pg (27.0-31.0)
[2020-11-10 05:57] LABS: PLATELET COUNT 38 K/mm3 (130-400)
--- NOTE | 2020-11-10 06:19 | NUR ---
PT SLEPT MOST OF THIS SHIFT, NO PAIN MEDS REQUESTED, ABLE TO TAKE JELLO AND SPRITE LAST NOC, UP TO RESTROOM WITH SBA, PLATELETS DOWN TO 38, DR LUO NOTIFIED
[2020-11-10 06:23] LABS: EOSINOPHIL 2 % (0-4); LYMPHOCYTE 21 % (20.0-51.0); MYELOCYTE 1 % (0-0); NEUTROPHILS 71 % (42.0-75.2)
[2020-11-10 06:24] LABS: ANISOCYTOSIS 2+; HYPERSEGMENTED POLYS PRESENT; OVALOCYTES 1+; PLATELET ESTIMATE DECREASED (NORMAL); POIKILOCYTOSIS 1+
--- NOTE | 2020-11-10 09:40 | NUR ---
Follow-up visit; Patient experiencing another difficult day but thanked Informatics Physician Liaison for looking in on her.
--- NOTE | 2020-11-10 09:42 | NUR ---
PT WEAK, EATING SM AMTS. HGB IMPOROVED WITH TRANSFUSIONS. NEW ORDERS RECIEVED. AT BEDSIDE AT THIS TIME. DIGITAL MARKETING MANAGER TO WORK ON POSSIBLE PLACEMENT VS HOME HEALTH.
--- NOTE | 2020-11-10 21:00 | NUR ---
PATIENT IS CALM IN THE ROOM.DENIES PAIN.SAFETY MEASURES IN PLACE.NO OTHER NEEDS AT THIS TIME
[2020-11-11 03:57] VITALS: BP 167/56; PULSE 100; TEMP 98.9
--- NOTE | 2020-11-11 04:57 | NUR ---
PATIENT HAD A CALM NIGHT.ON IVFS.PATIENT IS A SBA TO THE BATHROOM. DENIES PAIN.SAFETY MEASURES IN PLACE.NO OTHER NEEDS AT THIS TIME.
[2020-11-11 07:29] LABS: MEAN CELL VOLUME 91 fl (80.0-100.0); MEAN CORPUSCULAR HGB CONC 35 g/dl (33.0-37.0); RED BLOOD COUNT 2.93 M/mm3 (4.10-5.30); REDCELL DISTRIBUTION WIDTH-CV 17.1 % (11.5-14.5)
[2020-11-11 07:30] LABS: CALCIUM 7.6 mg/dL (8.4-10.2); CREATININE, serum 0.76 (0.52-1.25); POTASSIUM 3.5 mmol/L (3.4-5.0)
[2020-11-11 07:36] LABS: HEMATOCRIT 26.6 % (37.0-47.0); HEMOGLOBIN 9.2 g/dl (12.5-16.0); MEAN CORPUSCULAR HEMOGLOBIN 31 pg (27.0-31.0)
[2020-11-11 07:37] LABS: PLATELET COUNT 24 K/mm3 (130-400)
[2020-11-11 08:00] VITALS: BP 173/62; PULSE 93; TEMP 97.7
--- NOTE | 2020-11-11 08:24 | NUR ---
REPORTED LAB RESULTS TO . NO ORDERS AT THIS TIME.
[2020-11-11 09:13] LABS: ANISOCYTOSIS 1+; HYPOCHROMIA 2+; LYMPHOCYTE 38 % (20.0-51.0); NEUTROPHILS 52 % (42.0-75.2); PLATELET ESTIMATE DECREASED (NORMAL)
[2020-11-11 09:14] LABS: OVALOCYTES 1+; SCHISTOCYTES 1+
[2020-11-11 12:00] VITALS: BP 149/64; PULSE 96; TEMP 98
--- NOTE | 2020-11-11 15:16 | NUR ---
SW met with the patient to follow up. The patient was resting and states that she is doing okay. She states that she still plans on returning home with her upon discharge. JEMIMA discussed home health services. The patient was not interested in home health at this time. No additional needs at this time. *Discharge plan: home with *
[2020-11-11 16:00] VITALS: BP 176/54; PULSE 100; TEMP 97.6
[2020-11-11 19:20] VITALS: BP 161/63; PULSE 103; TEMP 99
[2020-11-11 23:22] VITALS: BP 171/59; PULSE 102; TEMP 101.5
--- NOTE | 2020-11-11 23:32 | NUR ---
Call placed to Dr. Rushing re: elevated temp of 101.8 - NON: tylenol 650mg po q 6 hours prn fever. Will continue to monitor.
[2020-11-12] VITALS (7 sets, daily range): BP systolic 158–180; BP diastolic 59–70; PULSE 64–95; TEMP 97.6–99.8
--- NOTE | 2020-11-12 04:18 | NUR ---
Awake, alert, oriented x 4, currently afebrile after 1 dose of tylenol overnight, denies pain, weakness noted, lap sites on abdomen wnl with bandaids intact, VS stable, willc continue to monitor.
[2020-11-12 07:41] LABS: MEAN CELL VOLUME 92 fl (80.0-100.0); MEAN CORPUSCULAR HGB CONC 34 g/dl (33.0-37.0); RED BLOOD COUNT 2.87 M/mm3 (4.10-5.30); REDCELL DISTRIBUTION WIDTH-CV 16.7 % (11.5-14.5)
[2020-11-12 07:47] LABS: MEAN CORPUSCULAR HEMOGLOBIN 31 pg (27.0-31.0)
[2020-11-12 07:48] LABS: HEMATOCRIT 26.3 % (37.0-47.0); PLATELET COUNT 13 K/mm3 (130-400)
--- NOTE | 2020-11-12 07:50 | NUR ---
Patient in bed resting. Alert and oriented x 3. Assessment complete. Lap sites x 3 with edges well approximated. Picc line to DIMITRIS without complications. Fluids infusing per orders. Patient denies pain or additional needs at this time.
[2020-11-12 08:49] LABS: LYMPHOCYTE 24 % (20.0-51.0); NUCLEATED RED BLOOD CELL 1 (0-6)
[2020-11-12 08:53] LABS: HYPERSEGMENTED POLYS PRESENT; NEUTROPHILS 64 % (42.0-75.2)
[2020-11-12 08:55] LABS: PLATELET ESTIMATE DECREASED (NORMAL)
--- NOTE | 2020-11-12 10:38 | NUR ---
Patient to CT by bed.
[2020-11-12 11:30] LABS: COLLECTION METHOD CLEAN CATCH
[2020-11-12 11:40] LABS: MUCOUS Present /lpf; PH 5 (5-8); SQUAMOUS EPITHELIAL 0-2 /hpf; URINE APPEARANCE Clear; URINE BACTERIA None Seen /hpf; URINE BILIRUBIN Negative (NEGATIVE); URINE BLOOD 1+ (NEGATIVE); URINE COLOR Yellow; URINE GLUCOSE Negative (NEGATIVE); URINE KETONE 1+ (NEGATIVE); URINE LEUKOCYTE ESTERASE Negative (NEGATIVE); URINE NITRATE Negative (NEGATIVE); URINE PROTEIN(semi-quant) Negative (NEGATIVE); URINE UROBILINOGEN Negative (NEGATIVE)
--- NOTE | 2020-11-12 19:19 | NUR ---
Patient states she feels weak throughout the day. Spouse at bedside. Has been up with SBA and walker to restroom. Denies pain at this time. Fluids continue infusing per orders. Denies needs at this time. Will report off to night shift supervisor.
[2020-11-13] VITALS (10 sets, daily range): BP systolic 141–184; BP diastolic 50–62; PULSE 77–96; TEMP 97.9–99.4
--- NOTE | 2020-11-13 02:46 | NUR ---
Resting quietly, patient with respirations even and unlabored, skin warm and dry, encouraging po intake, VS stable, tolerating IV antibiotics, will continue to monitor.
[2020-11-13 07:17] LABS: MEAN CELL VOLUME 90 fl (80.0-100.0); MEAN CORPUSCULAR HGB CONC 34 g/dl (33.0-37.0); RED BLOOD COUNT 2.67 M/mm3 (4.10-5.30); REDCELL DISTRIBUTION WIDTH-CV 16.7 % (11.5-14.5)
[2020-11-13 07:23] LABS: HEMATOCRIT 23.9 % (37.0-47.0); HEMOGLOBIN 8.2 g/dl (12.5-16.0); MEAN CORPUSCULAR HEMOGLOBIN 31 pg (27.0-31.0)
[2020-11-13 07:24] LABS: PLATELET COUNT 10 K/mm3 (130-400)
[2020-11-13 07:38] LABS: CALCIUM 7.8 mg/dL (8.4-10.2); CREATININE, serum 0.74 mg/dL (0.57-1.11); POTASSIUM 3.1 mmol/L (3.5-4.5)
--- NOTE | 2020-11-13 08:00 | NUR ---
Patient in bed resting. Alert and oriented x 3. Assessment complete. Patient states she feels better than she did yesterday. Lap sites x 3 with edges well approximated. Patient up to restroom with SBA and walker. Denies pain at this time. PICC line to DIMITRIS without complications, fluids infusing per orders. Denies further needs at this time.
[2020-11-13 08:17] LABS: LYMPHOCYTE 36 % (20.0-51.0); NEUTROPHILS 56 % (42.0-75.2)
[2020-11-13 08:18] LABS: SCHISTOCYTES 2+
[2020-11-13 08:19] LABS: ANISOCYTOSIS 1+; PLATELET ESTIMATE DECREASED (NORMAL)
--- NOTE | 2020-11-13 13:55 | NUR ---
Contacted Dr. Padron for consult. New order for irradiated platelets. Tylenol and benadry to be given prior to transfusion. Notified Blood bank of order.
--- NOTE | 2020-11-13 18:12 | NUR ---
Patient doing well today, states she continues to feel weak. Refuses meals throughout the day. Passing gas but no BM. Fluids infusing per order orders. Denies pain or needs at this time. Will report off to shift superintendent.
--- NOTE | 2020-11-13 20:47 | NUR ---
PLATELETS INFUSING AT THIS TIME.
--- NOTE | 2020-11-13 20:55 | NUR ---
PT WAS PREMEDICATED WITH BENADRYL AND TYLENOL PRIOR TO ADMINISTRATION OF PLATELETS. HAS RT UPPER ARM SINGLE LUMEN PICC, FLUSHES WELL WITH GOOD BLOOD RETURN. PT IS ALERT AND ORIENTED X4. INDEPENDENT IN ROOM. REPORTS SMALL BM AND REFUSES DULCOLAX TABS AT THIS TIME. VOIDING WITHOUT PROBLEM. LAP SITES X3 TO ABD, LOWER SITE WITH BRUISING NOTED. DENIES PAIN.
--- NOTE | 2020-11-13 22:58 | NUR ---
PLATELETS COMPLETE. PT DENIES NEEDS.
[2020-11-14] VITALS (7 sets, daily range): BP systolic 158–179; BP diastolic 54–58; PULSE 90–107; TEMP 97.6–99.2
--- NOTE | 2020-11-14 00:15 | NUR ---
INCONTINENT OF LARGE LOOSE STOOL, LINENS CHANGED, EVERTON CARES PROVIDED BY PCT.
--- NOTE | 2020-11-14 06:00 | NUR ---
PT DENIES FURTHER STOOLS. IV ANTIBIOTIC INFUSING WITHOUT PROBLEM TO RT PICC. DENIES PAIN AT THIS TIME.
[2020-11-14 07:26] LABS: MEAN CELL VOLUME 88 fl (80.0-100.0); MEAN CORPUSCULAR HGB CONC 35 g/dl (33.0-37.0); RED BLOOD COUNT 2.56 M/mm3 (4.10-5.30); REDCELL DISTRIBUTION WIDTH-CV 16.5 % (11.5-14.5)
[2020-11-14 07:32] LABS: HEMATOCRIT 22.6 % (37.0-47.0); MEAN CORPUSCULAR HEMOGLOBIN 31 pg (27.0-31.0)
[2020-11-14 07:33] LABS: PLATELET COUNT 10 K/mm3 (130-400)
[2020-11-14 09:10] LABS: ANISOCYTOSIS 1+; LYMPHOCYTE 44 % (20.0-51.0); NEUTROPHILS 52 % (42.0-75.2); OVALOCYTES 1+; PLATELET ESTIMATE DECREASED (NORMAL)
[2020-11-14 09:11] LABS: SCHISTOCYTES 1+
[2020-11-14 11:31] LABS: CALCIUM 7.3 mg/dL (8.4-10.2); CREATININE, serum 0.74 mg/dL (0.57-1.11)
[2020-11-14 11:52] LABS: POTASSIUM 2.7 mmol/L (3.5-4.5)
--- NOTE | 2020-11-14 20:30 | NUR ---
PT IN BED. HAS DECREASED APPETITE, NO NAUSEA AND IS ABLE TO TAKE THE ORAL POTASSIUM WITHOUT PROBLEM. REMOVED BANDAIDS FROM ABD LAP SITES, BRUISING NOTED TO LOWER AND UPPER STAB SITES. PT REPORTS EATING GRAPES TODAY. HAS NOT BEEN AMBULATING IN [place], DID ENCOURAGE INCREASED ACTIVITY. DENIES PAIN. IS VOIDING AND HAVING STOOLS WITHOUT PROBLEM TODAY. IVF TO RT PICC CONTINUE.
[2020-11-15] VITALS (17 sets, daily range): BP systolic 146–176; BP diastolic 46–68; PULSE 93–99; TEMP 98–99.8
--- NOTE | 2020-11-15 06:00 | NUR ---
PT ASSISTED TO BATHROOM, HAS LOOSE STOOL AND VOIDS, BACK TO BED. LAB REPORTS PLATELETS WILL BE HERE AT NOON TODAY.
[2020-11-15 06:59] LABS: MEAN CELL VOLUME 88 fl (80.0-100.0); MEAN CORPUSCULAR HGB CONC 35 g/dl (33.0-37.0); RED BLOOD COUNT 2.42 M/mm3 (4.10-5.30); REDCELL DISTRIBUTION WIDTH-CV 16.7 % (11.5-14.5)
[2020-11-15 07:02] LABS: HEMATOCRIT 21.3 % (37.0-47.0); HEMOGLOBIN 7.5 g/dl (12.5-16.0); MEAN CORPUSCULAR HEMOGLOBIN 31 pg (27.0-31.0)
[2020-11-15 07:03] LABS: PLATELET COUNT 7 K/mm3 (130-400)
[2020-11-15 07:27] LABS: CALCIUM 7.3 mg/dL (8.4-10.2); CREATININE, serum 0.71 mg/dL (0.57-1.11); POTASSIUM 3.5 mmol/L (3.5-4.5)
[2020-11-15 07:41] LABS: BAND 1 % (0-10); BASOPHIL 1 % (0-2); LYMPHOCYTE 54 % (20.0-51.0); METAMYELOCYTE 1 % (0-0); NEUTROPHILS 40 % (42.0-75.2); PLATELET ESTIMATE DECREASED (NORMAL)
[2020-11-15 07:42] LABS: OVALOCYTES 2+
[2020-11-15 08:38] LABS: PATHOLOGY DIFF REVIEW OK +
[2020-11-15 08:39] LABS: PATHOLOGY DIFF REVIEW OK
--- NOTE | 2020-11-15 09:32 | NUR ---
Pt doing okay this morning. She is weak and has little energy. Pt stated that she does not have an appetite and will work on eating some grapes and her brought in some pretzels. Pt reports overall having little pain. Lap sites are all well approximated. Lower incision at pant line does have a baseball size area of bruising. Pt gets up to the bathroom with standby assist with a walker. She does well, just slow and weak. No other needs verbalized, call light within reach
--- NOTE | 2020-11-15 10:58 | NUR ---
SW attended clinical rounds. The patient is now a DNR. Oncology has been consulted. SW to continue to follow.
--- NOTE | 2020-11-15 11:20 | NUR ---
Down to get blood, but blood was not quite ready for pickup, blood bank stated they would call when blood was ready.
--- NOTE | 2020-11-15 12:57 | NUR ---
Pt resting in bed at this time. She has been going to the restroom as least hourly, still having loose stool. Pain is tolerable, more with movement. Pt updated on plan for day with getting blood as well as platelets when they are available. Pt still does not have much of an appetite. Remaining with pt for first 15 minutes
--- NOTE | 2020-11-15 14:14 | NUR ---
Pt just got back to bed, BP is a little elevated, will recheck. Blood continues to infuse, tolerating with no signs of reaction
--- NOTE | 2020-11-15 15:49 | NUR ---
Cares resumed by this nurse. Blood transfusion completed, pt assisted to bathroom, SBA w/ walker. No needs expressed at this time. Call light within reach.
[2020-11-16] VITALS (8 sets, daily range): BP systolic 149–185; BP diastolic 46–63; PULSE 60–102; TEMP 98–98.5
[2020-11-16 06:53] LABS: MEAN CELL VOLUME 90 fl (80.0-100.0); MEAN CORPUSCULAR HGB CONC 34 g/dl (33.0-37.0); RED BLOOD COUNT 2.82 M/mm3 (4.10-5.30); REDCELL DISTRIBUTION WIDTH-CV 16.7 % (11.5-14.5)
[2020-11-16 06:55] LABS: HEMATOCRIT 25.4 % (37.0-47.0); HEMOGLOBIN 8.6 g/dl (12.5-16.0); MEAN CORPUSCULAR HEMOGLOBIN 30 pg (27.0-31.0); PLATELET COUNT 36 K/mm3 (130-400)
[2020-11-16 08:05] LABS: BAND 4 % (0-10); EOSINOPHIL 8 % (0-4); METAMYELOCYTE 2 % (0-0); NEUTROPHILS 40 % (42.0-75.2)
[2020-11-16 08:06] LABS: LYMPHOCYTE 40 % (20.0-51.0); OVALOCYTES 1+
[2020-11-16 08:07] LABS: ANISOCYTOSIS 2+; PLATELET ESTIMATE DECREASED (NORMAL); TEAR DROP CELLS 1+
--- NOTE | 2020-11-16 09:10 | NUR ---
PT RESTING IN BED, AM MEDS GIVEN ORDERED. PT NOT TAKING MUCH PO NURISHMENT. REFUSING MIRALAX, BOWL OF GRAPES AT BEDSIDE. BP SLIGHTLY ELEVATED WILL RECHECK PRIOR TO ADMINISTERING PRN.
--- NOTE | 2020-11-16 13:36 | NUR ---
CALLED TO PACU AT [address] BIPAP ON PATIENT. UPON ARRIVAL PATIENT WAS SNORING. PLACED PATIENT ON 16/8 WITH GOOD TIDAL VOLUMES AND EFFORT. PATIENT STILL HAD SLIGHT SNORING, HOWEVER WOULD NOT TOLERATE HIGHER SETTINGS. WILL CONTINUE TO MONITOR PATIENT AND RN IS NOTIFIED.
--- NOTE | 2020-11-16 16:22 | NUR ---
I met with patient and her , Golden at bedside this morning to talk about goals of care. Pt reports that she is really not very hungry and it is hard to find food that tastes good and she can tolerate. Does not like boost, sweets are not tolerated well. Encouraged to eat whatever does sound good and then we can better fine tune her diet once she is tolerating eating better. Per office report, pt's chemotherapy was stopped as she was doing pretty well and she was given a break. Then the appy happened and here she is now. No chemotherapy will be appropriate for the recovery period and then she and her need to talk openly with Dr Kwong about what options, benefits vs side effects, are truly available to her. Treatment is her first choice. She will consider hospice when treatment is not an option.
--- NOTE | 2020-11-16 20:00 | NUR ---
PATIENT ALERT AND ORIENTED X4 BUT DROWSY. PATIENT HAS PICC TO RIGHT UPPER ARM. PATIENT IS TO ONLY HAVE VITALS TAKEN ON LEFT LOWER EXTREMITY. PATIENT DENIES PAIN OR FURTHER NEEDS AT THIS TIME. CALL LIGHT WITHIN REACH. HEAD TO TOE ASSESSMENT COMPLETE.
[2020-11-17 03:27] VITALS: BP 178/60; PULSE 98; TEMP 98.3
[2020-11-17 06:07] LABS: MEAN CELL VOLUME 91 fl (80.0-100.0); MEAN CORPUSCULAR HGB CONC 34 g/dl (33.0-37.0); RED BLOOD COUNT 2.72 M/mm3 (4.10-5.30); REDCELL DISTRIBUTION WIDTH-CV 16.4 % (11.5-14.5)
[2020-11-17 06:16] LABS: HEMOGLOBIN 8.3 g/dl (12.5-16.0); MEAN CORPUSCULAR HEMOGLOBIN 31 pg (27.0-31.0)
[2020-11-17 06:17] LABS: HEMATOCRIT 24.7 % (37.0-47.0); PLATELET COUNT 22 K/mm3 (130-400)
--- NOTE | 2020-11-17 06:25 | NUR ---
PATIENT DID WELL THROUGHOUT THE NIGHT. SLEPT MOST OFNIGHT. DENIES PAIN. NO FURTHER NEEDS AT THIS TIME. WILL REPORT TO DAYSHIFT
[2020-11-17 06:35] LABS: CALCIUM 7.5 mg/dL (8.4-10.2); CREATININE, serum 0.7 mg/dL (0.57-1.11); POTASSIUM 3.7 mmol/L (3.5-4.5)
[2020-11-17 06:56] LABS: ANISOCYTOSIS 1+; HYPOCHROMIA 1+; LYMPHOCYTE 49 % (20.0-51.0); METAMYELOCYTE 1 % (0-0); MYELOCYTE 3 % (0-0); NEUTROPHILS 43 % (42.0-75.2); PLATELET ESTIMATE DECREASED (NORMAL); POIKILOCYTOSIS 1+
[2020-11-17 06:57] LABS: OVALOCYTES 1+
--- NOTE | 2020-11-17 07:11 | NUR ---
reported critical labs of WBC 1.3 AND PLT OF 22 TO DAYSHIFT. DAYSHIFT TO REPORT TO HOSPITALIST.
[2020-11-17 07:27] VITALS: BP 168/57; PULSE 101; TEMP 98.8
[2020-11-17 11:23] VITALS: BP 169/59; PULSE 93; TEMP 97.7
--- NOTE | 2020-11-17 11:57 | NUR ---
A palliative care consult was ordered. Palliative Care Nurse, Shelli, notified JEMIMA that she met with the patient and her . The patient informed Shelli that chemo actually made the patient feel better and she would want to pursue with chemo treatments again, if it is an option. Shelli states that she checked with an RN with Dr. Kwong and Dr. Kwong has been giving the patient a break from chemo. Claudia, with IV services, notified JEMIMA that she is familiar with the patient and her , Golden. Claudia reports that Golden talked to her and he is interested in post-acute rehab and may be IPR for the patient. JEMIMA met with the patient and her , Golden, to review discharge plan and discussed post-acute rehab vs home health. Golden reports that the patient needs to get stronger. JEMIMA informed them of the different post-acute rehab options in [place] and how facilities cannot take if the patient is on chemo. The patient and her verbalized understanding. The patient and Golden were interested in 1) [facility] 2) [facility]. JEMIMA consulted IPR Director, Mary. JEMIMA contacted and faxed a referral to Joe at [facility]. Awaiting screens.
--- NOTE | 2020-11-17 12:12 | NUR ---
I talked with patient at bedside. her is not there. She reports that eating is still difficult but she continues to try to eat what she can. She is willing to consider rehab at [facility] but now is having to wait on insurance approval.
--- NOTE | 2020-11-17 16:01 | NUR ---
David, at [facility], reports that they should be good to accept the patient. JEMIMA staffed with the PA. The patient may be able to d/c tomorrow. The patient has Medicare [employer]. JEMIMA faxed the patient's records to [facility] for insurance auth.
[2020-11-17 16:38] VITALS: BP 151/54; PULSE 96; TEMP 99.2
[2020-11-17 19:31] VITALS: BP 158/61; PULSE 96; TEMP 99.5
[2020-11-17 23:32] VITALS: BP 153/75; PULSE 94; TEMP 98.3
[2020-11-18] VITALS (11 sets, daily range): BP systolic 109–168; BP diastolic 54–75; PULSE 60–105; TEMP 97.8–98.8
--- NOTE | 2020-11-18 06:03 | NUR ---
RESTED THROUGH THE NIGHT WITHOUT INCIDENT. PAIN MEDS HELPED OVERNIGHT ALOT FOR STOMACH PAIN PER PT. NEEDS MET.
--- NOTE | 2020-11-18 07:56 | NUR ---
Pt assessment complete. Pt is laying in bed upon entry, she arouses to voice. She is A/O x4. Her breathing is even and unlabored on RA. Pt denies any pain at this time. Feels the pain medication has helped her pain a lot. Sites CDI to abdomen, some bruising present. Pt denies N/V. Small amount of loose stool but reports she hasnt had a good BM in "a while". No further needs at this time. Call light within reach.
--- NOTE | 2020-11-18 09:22 | NUR ---
Follow-up visit; Patient thanked Records And Tape Recordings Engineer for looking in on her and offering God's blessings. Records And Tape Recordings Engineer assured patient that spiritual care is always available to her.
[2020-11-18 10:26] LABS: MEAN CELL VOLUME 90 fl (80.0-100.0); MEAN CORPUSCULAR HGB CONC 35 g/dl (33.0-37.0); RED BLOOD COUNT 2.85 M/mm3 (4.10-5.30); REDCELL DISTRIBUTION WIDTH-CV 15.9 % (11.5-14.5)
[2020-11-18 10:28] LABS: HEMATOCRIT 25.6 % (37.0-47.0); HEMOGLOBIN 8.9 g/dl (12.5-16.0); MEAN CORPUSCULAR HEMOGLOBIN 31 pg (27.0-31.0)
[2020-11-18 10:29] LABS: PLATELET COUNT 15 K/mm3 (130-400)
[2020-11-18 10:43] LABS: CALCIUM 7.8 mg/dL (8.4-10.2); CREATININE, serum 0.69 mg/dL (0.57-1.11); POTASSIUM 3.5 mmol/L (3.5-4.5)
--- NOTE | 2020-11-18 15:38 | NUR ---
JEMIMA contacted [facility] to follow up on request. [facility] requested additional therapy notes from today. JEMIMA faxed the therapy notes to [facility]. The joint machine operator reports that there is a good chance that the request will go to their medical insurance claims specialist for a [id number]. JEMIMA met with the patient to update. The patient reports that she is open to home health if her insurance denies SNF.
--- NOTE | 2020-11-18 15:53 | NUR ---
Mary, IPR Director, has declined the patient.
--- NOTE | 2020-11-18 18:04 | NUR ---
Pt tolerating unit of platelets without issues. VSS. No pain at this time. Little appetite, but no N/V.
--- NOTE | 2020-11-18 21:00 | NUR ---
Pt. sitting up in bed. Pt. is A&OX3, assessment complete. PICC to rt. upper arm patent. Pt. reports pain to abd at a 5, gave pain meds per orders. Pt. denies further needs, call light within reach.
[2020-11-19 06:48] LABS: MEAN CELL VOLUME 88 fl (80.0-100.0); MEAN CORPUSCULAR HGB CONC 35 g/dl (33.0-37.0); RED BLOOD COUNT 2.52 M/mm3 (4.10-5.30); REDCELL DISTRIBUTION WIDTH-CV 15.7 % (11.5-14.5)
[2020-11-19 06:54] LABS: HEMATOCRIT 22.2 % (37.0-47.0); HEMOGLOBIN 7.8 g/dl (12.5-16.0); MEAN CORPUSCULAR HEMOGLOBIN 31 pg (27.0-31.0); PLATELET COUNT 24 K/mm3 (130-400)
[2020-11-19 07:05] LABS: CALCIUM 7.5 mg/dL (8.4-10.2); CREATININE, serum 0.68 mg/dL (0.57-1.11); POTASSIUM 3.7 mmol/L (3.5-4.5)
[2020-11-19 07:51] VITALS: BP 139/55; PULSE 93; TEMP 99
[2020-11-19 07:55] LABS: EOSINOPHIL 2 % (0-4); LYMPHOCYTE 56 % (20.0-51.0); NEUTROPHILS 36 % (42.0-75.2)
[2020-11-19 07:56] LABS: MICROCYTOSIS 1+; PLATELET ESTIMATE DECREASED (NORMAL)
--- NOTE | 2020-11-19 08:00 | NUR ---
PATIENT IS A&O. VSS. DENIES PAIN OR NAUSEA AT THIS TIME. PATIENT IS WEAK AND PALE IN COLOR. AM HGB OF 7.8 AND PLT OF 24. PATIENT HAS HX OF MYELODYSPLASTIC DISORDER AND HAS CHRONIC LOW BLOOD COUNTS. PATIENT EAT/DRINK/VOIDING SUFFICENT AMOUNTS. RIGHT UPPER ARM PICC LINE TO INT. HEAD TO TOE ASSESSMENT COMPLETE, SEE CHARTING. DNR STATUS. STUDENT NURSE WORKING WITH PATIENT TODAY, SEE STUDENT CHARTING. PATIENT HOPING TO DISCHARGE HOME WITH HH. NO OTHER NEEDS AT THIS TIME. CALL LIGHT IN REACH.
--- NOTE | 2020-11-19 08:53 | NUR ---
PT. resting in bed at this time, medication given whole PO. patient is A&OX4, pleasant with cares. X1 assist with ADL's. call light within reach.
[2020-11-19] MEDS ORDERED: NORVASC 10MG10 MG PO (09:10)
[2020-11-19] MEDS ORDERED: NORCO 325 MG-51 TAB PO (09:11)
--- NOTE | 2020-11-19 09:35 | NUR ---
JEMIMA attempted to contact [facility] this morning to follow up on request. JEMIMA left a voicemail. JEMIMA then attended clinical rounds. The patient's , Golden, at bedside. JEMIMA updated the patient and Golden about IPR and how we are still waiting to hear back from [facility] on auth. The hospitalist informed them how he is ready to discharge the patient today and discussed the options of waiting to hear back from insurance on auth for SNF vs home health. The patient and her report that they would prefer to just return home now with home health. JEMIMA then received a phone call during rounds from Lisa at [facility]. Lisa reports that the would require a [id number]. The patient and her have decided to pursue going home with home health. JEMIMA then followed up with the patient and her and provided them with Medicare.gov's list of home health agencies that serve [place]. The patient and her chose [facility] . JEMIMA contacted and faxed a referral to [facility]. [facility] reports that they do take the patient's insurance and are able to accept. JEMIMA updated the patient and . JEMIMA presented and read the IM form outloud to the patient. The patient verbalized understanding and gave JEMIMA approval to sign the form on her behalf. JEMIMA provided her with a copy. The patient is to discharge back home with her today, 11/19, with home health services for chcf/PT/OT from [facility]. JEMIMA notified and faxed discharge orders to [facility] at [facility] . No additional needs at this time.
[2020-11-19 12:18] VITALS: PULSE 100; TEMP 99.5
--- NOTE | 2020-11-19 12:30 | NUR ---
PATIENT IS ALL READY TO DISCHARGE WHEN HOME HEALTH AGENCY WAS QUESTIONING PICC LINE CARES/ORDERS/HEPARIN FLUSHES. DISCHARGE NOW ON HOLD WHILE CHIEF ENGINEER AND HOSPITALIST GET THINGS WORKED OUT WITH HOME HEALTH AGENCY.
--- NOTE | 2020-11-19 14:40 | NUR ---
HAD LOTS OF ISSUES ARRANGING HOME HEALTH ORDERS, SPECIFICALLY WITH HOME PICC LINE CARES WITH THIS PARTICULAR HOME HEALTH AGENCY IN [place]. AFTER A LOT OF PHONE CALLS, PATIENT IS ABLE TO DISCHARGE HOME. SENT PATIENT WITH ENOUGH DRESSING SUPPLIES TO DO THE FIRST DRESSING CHANGE AND CARES FOR THE PICC. GAVE DISCHARGE INSTRUCTIONS, E-SCRIPTS SENT, AND DISCUSSED F/U APTS. ANSWERED QUESTIONS/CONCERNS. RIGHT UPPER PICC LINES COVERED WITH SOFT ACEWRAP. PATIENT IS DRESSED, PACKED, AND ESCORTED OUT.
--- NOTE | 2020-11-19 14:43 | NUR ---
Gaviota, at [facility], contacted JEMIMA and reports that since they will be providing PICC line care to the patient now, they have to go through an infusion company for the supplies and flushes. Gaviota reports that she has spoken to Norma at [facility] already and they would just need the patient's records and order for the supplies. JEMIMA contacted Norma at [facility]. Norma reports that they need to supply the PICC line supplies and flushes for [facility] for the patient. She requests the patient's records and an order for PICC line care and flushes. JEMIMA notified the patient's RN and PA. JEMIMA obtained a script for the PICC line care and flushes. JEMIMA faxed the patient's records and scripts to Norma at [facility]. Norma reports that they will have to get auth from the patient's insurance, before the supplies is delivered to the patient's home. The patient's first lab draw by [facility] is this Sunday. JEMIMA inquired if they would have an answer from insurance and the supplies delivered by then. Norma was unsure if they would. Norma suggested having the patient sent home with a few saline flushes and supplies, until they have an answer from insurance. JEMIMA contacted and updated Gaviota at [facility]. Gaviota reports that their protocal still calls for heparin flushes. JEMIMA notified the clinical team of this. The hospital does not use heparin flushes for PICC Care and the patient has not been receiving any heparin flushes, only saline flushes. JEMIMA notified Gaviota at [facility] of this. Gaviota reports that this is fine and they will leave things the way that they are. Gaviota reports that they will be out to see the patient on Sunday to draw labs. JEMIMA updated the patient's RN and PA. The patient's RN provided the patient with saline flushes and some dressing changing supplies to go home with. JEMIMA met with the patient and her and updated them on the above. The patient and her were agreeale to the plan. No additional needs at this time.
== END 2020-11-19 14:50 | disposition home health service (06) | DRG 342 ==
LOC: COL.ER 09:10 → SURG 12:30 → EDBEDREQ 12:42 → SURG 11-19 14:50
PROVIDERS: Emergency Medicine; Family Medicine; Internal Medicine Medical Oncology; Physician Assistant; Student in an Organized Health Care Education/Training Program; ADMIT Surgery
PROC: 0DTJ4ZZ Resection of Appendix, Percutaneous Endoscopic Approach (ICD-10-PCS; principal; 2020-11-08)
DX: K35.80 Unspecified acute appendicitis (principal); D61.818 Other pancytopenia; J90 Pleural effusion, not elsewhere classified; E44.0 Moderate protein-calorie malnutrition; D46.9 Myelodysplastic syndrome, unspecified; K57.90 Diverticulosis of intestine, part unspecified, without perforation or abscess without bleeding; Z85.3 Personal history of malignant neoplasm of breast; D70.9 Neutropenia, unspecified; E87.6 Hypokalemia; R50.81 Fever presenting with conditions classified elsewhere; K21.9 Gastro-esophageal reflux disease without esophagitis; Z20.822 Contact with and (suspected) exposure to COVID-19; D69.6 Thrombocytopenia, unspecified; K59.00 Constipation, unspecified; F32.9 Major depressive disorder, single episode, unspecified; Z68.27 Body mass index [BMI] 27.0-27.9, adult
CPT/HCPCS: 99223; 99232-AI; 99233-AI; 99239; A9284; J0295; J1940; J2270; J2405; J2543; J2704; J3010; J3370; J3480; J7030; J7050; P9035; P9040; Q9967

== ENCOUNTER 2020-11-22 13:00 | Outpatient (RCR) | payer MEDICARE ==
[~2020-11-22] VITALS: Ht 157.5 cm; Wt 72.7 kg
[2020-11-22] VITALS (8 sets, daily range): BP systolic 150–184; BP diastolic 65–81; PULSE 94–98; TEMP 97.7–98.5
[~2020-11-22 13:00] MED LIST changes: +NORCO 325 MG-51 TAB PO; +NORVASC 10MG10 MG PO; +OSCAL 500 TAB500 MG PO
--- NOTE | 2020-11-22 14:02 | NUR ---
Pt has tolerated her platelet and prbc infusion without any adverse or allergic reactions. Pt is escorted to exit via wheelchair.
== END 2020-11-22 19:11 | disposition home or self-care (01) ==
LOC: EUO 13:00
DX: C50.412 Malignant neoplasm of upper-outer quadrant of left female breast (principal); D46.21 Refractory anemia with excess of blasts 1
CPT/HCPCS: J7050; P9035; P9040

== ENCOUNTER 2020-11-24 09:09 | Outpatient (RCR) | payer MEDICARE ==
[~2020-11-24] VITALS: Ht 157.5 cm; Wt 65.9 kg
[2020-11-24 09:15] VITALS: BP 170/91; PULSE 106; TEMP 98.8
--- NOTE | 2020-11-24 10:50 | NUR ---
Pt to return at 3pm for platelet transfusion.
[2020-11-24 16:13] VITALS: BP 147/79; PULSE 101; TEMP 98.3
[2020-11-24 16:28] VITALS: BP 128/96; PULSE 98; TEMP 98.9
[2020-11-24 16:58] VITALS: BP 132/95; PULSE 102; TEMP 98.4
[2020-11-24 17:39] VITALS: BP 141/68; PULSE 95; TEMP 98.5
--- NOTE | 2020-11-24 17:43 | NUR ---
Platelets completed, PICC flushed with 20 ml NS, patient escorted from unit via wheelchair.
[2020-11-26] VITALS (9 sets, daily range): BP systolic 152–164; BP diastolic 64–75; PULSE 102–112; TEMP 97.1–99.1
--- NOTE | 2020-11-26 09:00 | NUR ---
Talked with office nurse, Bessy, regarding comments that the patient made on 11/24 when she was in [facility] transfusion. Multiple comments to staff (to include health information clerk & wiating room volunteer) about wanting to & "when is the end." Concerns from staff expressed to this nurse. This nurse spent 30 minutes with patient on 11/24 discussing her reason for making comments. Patient stated that her Oncology doctor told her that chemo was not working a month ago. There was not a further discussion about plan of care or options from her doctor. She was confused on her what her indivisual plan moving forward was. This nurse discussed what goals/milestones the patient had, what her conversations about end of life had been with her spouse & family. Patient weak, tearful & requesting guidance. This conversation with patient discussed with Oncology office nurse; minimal response in return. Did request that the office contact the patient & spouse for a goals of care conversation & plan. Office nurse stated that she would pass on to the doctor. Permission to contact the office received from the patient.
== END 2020-11-26 19:44 | disposition home or self-care (01) ==
LOC: EUO 09:09
DX: C50.412 Malignant neoplasm of upper-outer quadrant of left female breast (principal)
CPT/HCPCS: J7050; P9035